=== PATIENT | male | born 1940 | race Caucasian/White ===

== ENCOUNTER → 2017-09-15 | Outpatient (CLI) | payer MEDICARE ==
[~2017-09-15] VITALS: Ht 182.9 cm; Wt 113.4 kg
[~2017-09-15] MED LIST: ACTOS 45 MG45 M1 PO; AMLODIPINE BESYL5 MG PO; APAP650 PO; ASPIR 8181 MG PO; ASPIRIN EC81 M1 PO; ASPIRIN81 M2 PO; BRILINTA90 MG PO; CARVEDILOL12.5 MG PO; CARVEDILOL25 MG PO; CENTRUM SILVER1 EAC1 PO; CENTRUM SILVER1 EAC4 PO; CIPRO500 MG PO; CLOPIDOGREL75 MG PO; COLACE100 MG PO; DIABETA 5MG TABL5 MG PO; EFFIENT10 MG PO; FLOMAX PO; FLOMAX0.4 MG PO; FLONASE16 GM NASAL; FUROSEMIDE 40 M40 M1 PO; GLUCOPHAGE1000 MG PO; GLUCOPHAGE500 MG PO; HYDROCHLOROTHIA25 M1 PO; IMDUR 30 MG TAB30 M1 PO; IMDUR 60 MG TAB60 M1 PO; KEFLEX500 M1 PO; LASIX 20 MG TAB20 MG PO; LEVAQUIN 500 M500 M2 PO; LEVEMIR SUBQ; LIPITOR40 MG PO; LIPITOR80 MG PO; LISINOPRIL20 MG PO; LISINOPRIL5 MG PO; METAMUCIL SUGA283 GM PO; METFORMIN HCL500 MG PO; NITROGLYCERIN0.4 MG SL; NITROGLYCERIN0.4 MG SUBLING; NORVASC10 MG PO; NOVOLOG FL100 UNIT/M SC; ONGLYZA5 MG PO; PLAVIX 75 MG TA75 M1; PLAVIX 75 MG TA75 M1 PO; PRAVACHOL80 MG PO; PREDNISONE 10 M10 MG PO; PROSCAR 5MG TABL5 M1 PO; QUINAPRIL 20 MG20 MG PO; SIMVASTATIN80 MG PO; TAMSULOSIN HCL0.4 MG PO; TYLENOL PM EX-1 EACH PO; TYLENOL325 MG PO
[2017-09-15 08:54] VITALS: BP 117/68
[2017-09-15 09:20] LABS: ABSOLUTE BASOPHILS 0.1 thou/uL (0.0-0.2); ABSOLUTE EOSINOPHILS 0.1 thou/uL (0.0-0.7); ABSOLUTE LYMPHOCYTES 1.2 thou/uL (0.8-5.3); ABSOLUTE MONOCYTES 0.7 thou/uL (0.0-1.2); ABSOLUTE NEUTROPHILS 4.7 thou/uL (1.6-8.1); BASOPHILS 0.9 %; EOSINOPHILS 1.7 %; HEMATOCRIT 39.1 % (42.0-52.0); HEMOGLOBIN 13.1 gm/dL (14.0-18.0); LYMPHOCYTES 17.4 %; MCH 29.9 pg (26.0-34.0); MCHC 33.4 g/dL (28.0-37.0); MCV 89.3 fL (80.0-100.0); MONOCYTES 10.8 %; MPV 7.9 fl. (7.2-11.1); NUCLEATED RBCS 0 /100WBC; PLATELET COUNT* 93 thou/uL (150-400); POLYS 69.2 %; RBC 4.37 mil/uL (4.50-6.00); RDW-CV 14.2 % (10.5-14.5); WBC 6.8 thou/uL (4.0-11.0)
[2017-09-15 09:32] LABS: APTT 28.4 Seconds (25.0-31.3); INR 1.1; PROTIME 10.8 Seconds (9.20-11.50)
[2017-09-15 09:43] LABS: CALCIUM 8.9 mg/dL (8.5-10.1); CREATININE 1.4 mg/dL (0.6-1.3); POTASSIUM 4.8 mmol/L (3.5-5.1)
[2017-09-15 09:48] LABS: ALBUMIN 3.6 g/dL (3.4-5.0); TOTAL BILIRUBIN 0.7 mg/dL (<0.1-1.0); TOTAL PROTEIN 6.6 g/dL (6.4-8.2)
[2017-09-15 11:59] VITALS: BP 122/65
--- NOTE | 2017-09-15 16:53 | EKG ---
[place] [address] ELECTROCARDIOGRAM REPORT Name: GEORGE IGLESIAS Room: [facility]#: [id number] Admission: 09/15/17 Attend Phys: Bhargav Hernandez MD Discharge: Date of : 38 Report #: [id number] THIS REPORT FOR: //name// [facility] Test Date: 2017-09-15 Test Time: 09:49:43 Pat Name: GEORGE IGLESIAS Department: Room: Gender: M Cleat Blanker: : 1940 Requested By: Bhargav Hernandez Order Number: [id number] Reading MD: Bhargav Hernandez Measurements Intervals [place] Rate: 70 P: -16 HI: 202 QRS: -75 QRSD: 180 T: 113 QT: 455 QTc: 491 Interpretive Statements A-V dual-paced rhythm with some inhibition No further analysis attempted due to paced rhythm Compared to ECG 05/06/2016 11:13:43 No significant changes Electronically Signed On 09-15-2017 16:53:16 CDT by Bhargav Hernandez [email or web address] <ELECTRONICALLY SIGNED> By: Bhargav Hernandez MD, [facility] 09/15/17 1653 0949 0949 Bhargav Hernandez MD, [facility] /EPI
--- NOTE | 2017-10-06 18:46 | CARD ---
[address] [address] CARDIAC CATH REPORT Name: GEORGE IGLESIAS Room: [facility]#: [id number] Admission: 09/15/17 Attend Phys: Bhargav Hernandez MD Discharge: Date of : 38 Report #: [id number] THIS REPORT FOR: //name// APPROVED REPORT Study performed: 09/15/2017 09:41:36 Patient Status: Out-Patient Room #: Implanted Devices: Biotronik Itrevia 7 DRT DF1, model #082887, serial #[id number] dual-chamber ICD generator The existing leads: Medtronic Sprint yelena, model #694 76 5, serial number Td [id number] pacing lead Medtronic CaptureFix Novus, model #407 65 2, serial number [id number] atrial lead Explanted Devices: Medtronic Protecta XT DR, model number D314 DRG, serial number [id number] dual-chamber ICD generator Procedure After informed consent was obtained the area of the left chest was prepped and draped in sterile fashion. Local anesthesia was achieved with 1% lidocaine. Next after an initial incision was made over the existing dual-chamber ICD pulse generator the generator was explanted using electrocautery and blunt dissection. The pocket was flushed with antibiotic solution. The leads were detached the defibrillator lead being detached first followed by the atrial lead and ultimately the RV pacing lead which was immediately attached to the new dual-chamber pacing ICD generator. The atrial and after the pocket was flushed the generator and redundant lead were placed within the device pocket. The deep tissues were closed using interrupted stitches of 2-0 Vicryl. The skin incision was then closed with a single subcuticular stitch of 4-0 Vicryl. Several Steri-Strips were placed across the incision. A sterile Telfa dressing was then covered with a Tegaderm. The patient was returned to the catheterization holding area in stable condition. Complications The patient tolerated the procedure well and there were no complications associated [place] [address] CARDIAC CATH REPORT Name: GEORGE IGLESIAS Room: [facility]#: [id number] Admission: 09/15/17 Attend Phys: Bhargav Hernandez MD Discharge: Date of : 38 Report #: [id number] The sensed P wave was 4.10 mV. There was no underlying sensed R wave. The atrial lead pacing threshold was 0.9 V at 0.40 ms. The RV pacing threshold was 1.10 V at 0.40 ms. Right atrial lead pacing impedance was 389 ohms. Shocking impedance was 63 ohms. Charge time was 9.8 seconds. VF detection rate 182 bpm with VF therapies anti-tach pacing times one and 40 J shock 8. Slow VT detection rate 150 bpm with slow VT therapy of monitoring. Fast VT detection rate 167 bpm with fast VT therapy antitachycardia pacing 6 followed by 40 J shock times a day. Conclusion 1. Dual-chamber ICD generator at elective replacement. 2. Dual-chamber ICD generator replaced. Recommendations 1. Follow-up site check in one week in the cardiology office. <ELECTRONICALLY SIGNED> By: Bhargav Hernandez MD, FACC 10/06/171845 45 45Miclennox Hernandez MD, FACC /INF
== END | disposition home or self-care (01) ==
LOC: M.CL 08:41
PROVIDERS: Internal Medicine Cardiovascular Disease
DX: Z45.02 Encounter for adjustment and management of automatic implantable cardiac defibrillator (principal); I10 Essential (primary) hypertension; E11.9 Type 2 diabetes mellitus without complications; E78.5 Hyperlipidemia, unspecified; I25.2 Old myocardial infarction; M19.90 Unspecified osteoarthritis, unspecified site; I42.9 Cardiomyopathy, unspecified; Z85.828 Personal history of other malignant neoplasm of skin; Z87.442 Personal history of urinary calculi; Z95.5 Presence of coronary angioplasty implant and graft; Z98.0 Intestinal bypass and anastomosis status; Z79.899 Other long term (current) drug therapy; Z96.651 Presence of right artificial knee joint; Z87.891 Personal history of nicotine dependence; Z88.2 Allergy status to sulfonamides; Z88.8 Allergy status to other drugs, medicaments and biological substances; Z79.82 Long term (current) use of aspirin; Z79.4 Long term (current) use of insulin; Z79.01 Long term (current) use of anticoagulants

== ENCOUNTER 2017-10-09 15:17 | Inpatient (IN) | payer MEDICARE ==
[~2017-10-09] VITALS: Ht 182.9 cm; Wt 108.0 kg
[~2017-10-09 15:17] MED LIST changes: -COLACE100 MG PO; -EFFIENT10 MG PO; -METAMUCIL SUGA283 GM PO
[2017-10-09 15:23] VITALS: BP 181/99
[2017-10-09] MEDS ORDERED: PLAVIX 75 MG TA75 M1 PO ×2 (15:36→15:37)
[2017-10-09] MEDS ORDERED: IMDUR 30 MG TAB30 M1 PO (15:40)
[2017-10-09 15:48] LABS: ABSOLUTE BASOPHILS 0.1 thou/uL (0.0-0.2); ABSOLUTE EOSINOPHILS 0.2 thou/uL (0.0-0.7); ABSOLUTE LYMPHOCYTES 1.1 thou/uL (0.8-5.3); ABSOLUTE MONOCYTES 0.8 thou/uL (0.0-1.2); ABSOLUTE NEUTROPHILS 6.8 thou/uL (1.6-8.1); BASOPHILS 0.9 %; EOSINOPHILS 1.9 %; HEMOGLOBIN 13.4 gm/dL (14.0-18.0); MCH 30.2 pg (26.0-34.0); MCHC 33.4 g/dL (28.0-37.0); MCV 90.4 fL (80.0-100.0); MONOCYTES 8.9 %; MPV 8.7 fl. (7.2-11.1); NUCLEATED RBCS 0 /100WBC; PLATELET COUNT* 90 thou/uL (150-400); POLYS 76.3 %; RBC 4.42 mil/uL (4.50-6.00); WBC 8.9 thou/uL (4.0-11.0)
[2017-10-09 15:53] LABS: CREATININE 1.6 mg/dL (0.6-1.3); POTASSIUM 4.1 mmol/L (3.5-5.1)
[2017-10-09 16:04] LABS: ALBUMIN 3.9 g/dL (3.4-5.0); TOTAL PROTEIN 7.4 g/dL (6.4-8.2); TROPONIN-I LEVEL 0.08 ng/mL (<0.06)
[2017-10-09 16:08] LABS: APTT 30.6 Seconds (25.0-31.3); INR 1.1; PROTIME 10.8 Seconds (9.20-11.50)
--- NOTE | 2017-10-09 19:10 | NUR ---
RN UNABLE TO TAKE REPORT AT THIS TIME. PT RETURNED FROM [facility], UPDATED ON PLAN FOR CARE
[2017-10-09 19:41] VITALS: BP 183/91
[2017-10-09 20:43] LABS: BE -3.4 mmol/L (-2 to +3); HCO3 21.2 mmol/L (22.0-26.0); PCO2 36.9 mmHg (35.0-45.0); PO2 65.3 mmHg (75.0-100.0); pH 7.377 (7.340-7.450)
[2017-10-09 20:54] VITALS: BP 179/157
[2017-10-09 23:00] VITALS: BP 151/67
--- NOTE | 2017-10-09 23:01 | NUR ---
PATIENT CAME TO FLOOR WITH ELEVATED BLOOD PRESSURE, SHORTNESS OF BREATH, RESTLESSNESS. DOCTOR RODRÍGUEZ CALLED AND NOTIFIED. ORDER TO GIVE ATIVAN,NITRO AND DRAW ABG. PATIENT WAS NOT COMPLAINING OF CHEST PAIN. DOCTOR RODRÍGUEZ ADDRESS BLOOD PRESSURE MEDS. RESIPRATORY NOTIFIED FO PATINETS SOB. CARDIOLOGY CALLED AND NOTIFIED OF ELEVATED TROP, AND INCREASE HEART RATE, NO NEW ORDERS. CALLED TO DOCTOR RODRÍGUEZ REQUARDING REQUEST FOR BIPAP DUE TO INCREASE OXYGEN NEED, SEE ORDERS. DOCTOR RODRÍGUEZ ALSO NOTIFIED OF INCREASED HEART RATE. PATIENT HEART RATE WAS 120'S WHEN CAME TO FLOOR, HEART RATE DECRASED TO 105 BY TRANSFER. RESPIRATORY RATE WAS HIGH 30'S WHEN CAME TO FLOOR AND DECREASE TO 26 BY TRANSFER. PATIENT O2 WAS AT 97 BY TRANSFER. PATIENT NO LONGER APPEAR TO BE IN DISTRESS AT TRANSFER. REPORT GIVEN TO AMY, PATIENT TRANSFER TO ICU. EKG WAS DONE BEFORE PATIENT DISCHARGE, HEPRAIN DRIP STARTED.
[2017-10-10] VITALS (19 sets, daily range): BP systolic 103–127; BP diastolic 53–86
--- NOTE | 2017-10-10 09:16 | NUR ---
RECIEVED REPORT FROM NIGHT RN. ASSESSMENT CHARTED. AFEBRILE. DENIES CHEST PAIN. OFF BIPAP. CARDIZEM AND HEPARIN GTT INFUSING. TROP ELEVATED. NOTIFIED CARDIOLOGY NURSE, CHELSEY. WILL CONTINUE TO MONITOR.
--- NOTE | 2017-10-10 12:40 | EKG ---
[place] [address] ELECTROCARDIOGRAM REPORT Name: GEORGE IGLESIAS Room: [address] ADM IN .R.#: [id number] Admission: 10/09/17 Attend Phys: Do Rowley MD Discharge: Date of : 38 Report #: [id number] THIS REPORT FOR: //name// [facility] ED Test Date: 2017-10-09 Test Time: 15:26:07 Pat Name: GEORGE IGLESIAS Department: Room: [address] Gender: M Welcome Center Attendant: HUSEYIN : 1940 Requested By: Raegan Will Order Number: [id number] Reading MD: Soren Robert Measurements Intervals [place] Rate: 93 P: 114 KS: 46 QRS: -77 QRSD: 182 T: 107 QT: 424 QTc: 528 Interpretive Statements Ventricular-paced complexes No further rhythm analysis attempted due to paced rhythm LVH with IVCD, LAD and secondary repol abnrm Inferior infarct, acute (RCA) Anterolateral infarct, recent Prolonged QT interval Probable RV involvement, suggest recording right precordial leads Compared to ECG 09/15/2017 09:49:43 Intraventricular conduction delay now present Left ventricular hypertrophy now present Early repolarization now present Myocardial infarct finding now present Prolonged QT interval now present Electronically Signed On 7-21-2018 12:40:40 CDT by Soren Robert [email or web address] <ELECTRONICALLY SIGNED> By: Soren Robert MD, [facility] 10/10/17 1240 1526 1526 Soren Robert MD, [facility] /EPI
--- NOTE | 2017-10-10 12:41 | EKG ---
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 Packer: : 1940 Requested By: Raegan Will Order Number: [id number] MD: Soren Robert Measurements Intervals [place] Rate: 115 P: 47 FL: 56 QRS: -72 QRSD: 187 T: 114 QT: 387 QTc: 536 Interpretive Statements Ventricular-paced complexes No further analysis attempted due to paced rhythm Compared to ECG 09/15/2017 09:49:43 No significant changes Electronically Signed On 10-10-2017 12:41:11 CDT by Soren Robert [email or web address] <ELECTRONICALLY SIGNED> By: Soren Robert MD, [facility] 10/10/17 1241 2203 02 Soren Robert MD, [facility] /EPI
--- NOTE | 2017-10-10 12:43 | EKG ---
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: : 1940 Requested By: Do Rowley Order Number: [id number] Reading MD: Soren Robert Measurements Intervals [place] Rate: 80 P: 0 CA: 163 QRS: -78 QRSD: 198 T: 108 QT: 472 QTc: 545 Interpretive Statements Atrial-sensed ventricular-paced rhythm No further analysis attempted due to paced rhythm Compared to ECG 09/15/2017 09:49:43 No significant changes Electronically Signed On 10-10-2017 12:42:51 CDT by Soren Robert [email or web address] <ELECTRONICALLY SIGNED> By: Soren Robert MD, FACC 10/10/17 1242 0850 0850 Soren Robert MD, [facility] /EPI
--- NOTE | 2017-10-10 13:44 | NUR ---
PT HAD HIGH PTT >198.4. RESULTS REPORTED TO CARDIOLOGY NURSE AND DR MENDEZ. TURNED OFF HEPARIN GTT FOR 1 HR AND FOLLOWED CARDIOLOGY HEPARIN THERAPY PROTOCOL.
--- NOTE | 2017-10-10 18:41 | NUR ---
PT VITALS STABLE. ADEQUATE URINE OUTPUT. HEPARIN GTT STILL INFUSING PER PROTOCOL. CARDIZEM GTT D/C'D. DR ANGEL ORDERED PT BE NPO AFTER MIDNIGHT TOMORROW. WILL PROBABLY HAVE CATH PROCEDURE THAT NEXT DAY. PT DENIES ANY CHEAT PAIN. PT AND FAMILY UPDATED ON PLAN OF CARE.
--- NOTE | 2017-10-10 20:00 | NUR ---
ASSUMED CARE OF PATIENT. DENIES CHEST PAIN. GOAL IS TO REST TONIGHT.
[2017-10-10] MEDS ORDERED: METAMUCIL SUGA283 GM PO (20:06)
[2017-10-10] MEDS ORDERED: TYLENOL PM EX-1 EACH PO (20:08)
--- NOTE | 2017-10-10 23:00 | NUR ---
TRANSFERRED PATIENT UP TO 226 BY BED WITH BELONGINGS. OK TO TRANSFER FROM DR CASTILLO AND DR ANGEL. PATIENT WILL TEXT ABOUT TRANSFER. REPORT GIVEN TO IVA.
--- NOTE | 2017-10-11 03:52 | NUR ---
PT TRANSFERED UP TO ROOM 226 AT AROUND 1130PM FROM ICU. GOT REPORT FROM NURSE, COMPLETED ASSESSMENT, TOOK VITALS, AND GAVE NIGHT MEDICATION. NO C/O PAIN OR DISCOMFORT. PT ON BEDREST UNTIL FURTHER NOTICE, WILL CONTINUE TO MONITOR.
[2017-10-11 04:00] VITALS: BP 106/64
[2017-10-11 08:00] VITALS: BP 138/78
--- NOTE | 2017-10-11 08:09 | CON ---
[address] [address] CONSULTATION Name: GEORGE IGLESIAS Room: [address] IN M.R.#: [id number] Admission: 10/09/17 Attend Phys: Do Rowley MD Discharge: Date of : 38 Report #: [id number] THIS REPORT FOR: //name// CC: Do Hernandez REQUESTING PHYSICIAN: Dr. Rowley. REASON FOR CONSULTATION: Respiratory failure. DISCUSSION: The patient is a pleasant 77-year-old man who has no history of underlying lung disease. He was admitted after presenting to the Emergency Department with complaints of chest tightness and increasing shortness of breath. No real chest pain. He took nitroglycerin at home, did have some relief. When he had ongoing issues, he was seen in [facility] Emergency Room and was admitted. Initial troponins were unremarkable. X-ray was clear of infiltrates. He was placed up on the floor. He had increasing shortness of breath and anxiety. He was tachycardic and hypertensive. Subsequently, transferred to the Intensive Care Unit. With increasing respiratory rate, he was placed on BiPAP. He was also placed on a diltiazem drip per Cardiology. At the time I saw him this morning, heart rate, blood pressure were well controlled and quite stable. FiO2 was 60% on the BiPAP, with his O2 saturations running in the high 90s. He was awake, comfortable and was requesting to have the BiPAP removed. He is a remote smoker, quitting over 25 years ago. No history of COPD, asthma, emphysema. He is on no inhalers, breathing treatments or oxygen at home. His history is remarkable for coronary artery disease and ischemic cardiomyopathy. He follows with Dr. Johnson and has done so for years. He had coronary artery bypass grafting surgery 20 years ago. He has had multiple stents placed in the interim. He has also developed an ischemic cardiomyopathy with the last EF that I have access to at 30-35%. He has a defibrillator in place as well. On followup lab this morning, he has had a significant bump in his troponin. He was given some Lasix last night with just a fair urine output. He was not short of breath, and he was pain free this morning. PAST MEDICAL HISTORY: Remarkable primarily for the coronary artery disease as noted above. He also has a history of peripheral vascular disease, has had a stent placed, abdominal aortic aneurysm. He sees Dr. Donahue for that. Also has a history of renal cell carcinoma, status post nephrectomy. I do not believe he has had any evidence of recurrence. History of hypertension, dyslipidemia, knee replacement, herniorrhaphy, dyslipidemia. BPH, treated with laser and I believe a TURP. HOME MEDICATIONS: Reportedly were p.r.n. nitroglycerin, Plavix, Imdur, baby aspirin, Coreg, insulin, atorvastatin, Flomax, Lasix, Proscar, lisinopril, [place] [address] CONSULTATION Name: GEORGE IGLESIAS Room: [address] IN [facility]#: [id number] Admission: 10/09/17 Attend Phys: Do Rowley MD Discharge: Date of : 38 Report #: [id number] SOCIAL HISTORY: Former smoker as noted. Quit greater than 25 years ago. He is . REVIEW OF SYSTEMS: Please note positives as above. He has not had any GI symptoms. No nausea, vomiting, diarrhea. No blood in the stools. Retrospectively, he has had trouble playing golf here over the last month or so. He notes he could only play 4-5 holes due to shortness of breath. It started to tighten up in his chest. He has some upper airway congestion. No cough or sputum production from his lungs. No hemoptysis. He has not noted any swelling in his lower extremities. He has not had any syncopal episodes. No skin rashes. FAMILY HISTORY: Positive for strokes. PHYSICAL EXAMINATION: GENERAL: The patient is seen in the Intensive Care Unit. He is on the BiPAP. He is alert, conversant, and able to speak in full sentences. VITAL SIGNS: Heart rates in the 80s. O2 saturations are in the high 90s. HEENT: Head is normocephalic. Sclerae nonicteric. Mucous membranes do look dry. NECK: Negative for adenopathy. Neck veins do not look distended. He has a well-healed median sternotomy scar. His pacemaker/defibrillator palpable left anterior chest wall. HEART: Tones are distant, appear regular. Grade 1/6 systolic murmur. No S3 is heard. LUNGS: Sounds are clear. No wheezing or crackles are heard. Excursion is equal. ABDOMEN: Mildly obese, but soft, without appreciable hepatosplenomegaly. There is no guarding or rebound tenderness. LOWER EXTREMITIES: Negative for edema. No calf tenderness. Healed surgical scar over his right knee. Pulses are present, but diminished in his feet. SKIN: Warm and dry. NEUROLOGIC: He is alert and oriented x 3. LABORATORY AND X-RAY FINDINGS: Echocardiogram done last year here at [facility] showed EF of 30-35% with akinesis noted. RV was mildly dilated, but had normal systolic function. Left atrium was moderately to severely dilated. He had qdqr-vt-bpysgcat mitral regurgitation. Estimated pulmonary artery systolic pressure was 35 mmHg. Arterial blood gases done yesterday evening revealed a pH of 7.38, pCO2 of 37, pO2 of 65, bicarbonate 21 on 8 liters of oxygen. There were no gases done once he was on the BiPAP. White blood cell count 8900, hemoglobin 13.4, hematocrit of 40, platelets are 90,000. His chemistry, yesterday, his BUN was 24, creatinine of 1.6. Initial troponin was 0.08, did bump up to 7.79 this morning. ProBNP yesterday was 4810. Chest x-ray was reviewed. He has evidence of prior median sternotomy. Does have some prominence of interstitial markings, probably [place] [address] CONSULTATION Name: GEORGE IGLESIAS Room: [address] IN [facility]#: [id number] Admission: 10/09/17 Attend Phys: Do Rowley MD Discharge: Date of : 38 Report #: [id number] which are stable compared to older studies. No acute infiltrates are noted. No pneumothorax, no pleural effusions. He had a ventilation perfusion lung scan done yesterday. Some mild air trapping noted. Low probability for PE. IMPRESSION: 1. Acute respiratory failure, improved this morning. Appears to have been related to a non-ST elevation myocardial infarction. Has known coronary artery disease with an ischemic cardiomyopathy. We did not have florid heart failure on his chest x-ray, and he already has underlying issues with LV dysfunction and his mitral regurgitation, probably contribute to his increased O2 needs. Better this morning with heart rate and blood pressure better controlled. 2. Chronic kidney disease. 3. Chronic thrombocytopenia. 4. Peripheral vascular disease. 5. Mild metabolic acidosis noted on last night's blood gas. Follow up lab pending from this morning. 6. Clinically, I doubt he has a significant chronic obstructive pulmonary disease. RECOMMENDATIONS: 1. We will discontinue his IV steroids. 2. We will continue bronchodilator therapy at this time and see how he does over the next 24 hours. 3. I believe he could also safely transition from BiPAP over to nasal cannula. He can return to BiPAP p.r.n. increased work of breathing. 4. Need cardiology followup. I am not sure what other options there may be for him in regards to his coronary artery disease, <ELECTRONICALLY SIGNED> By: Kristina Dunham MD 10/11/17 0809 0842 0958Kristina Dunham MD /nt
--- NOTE | 2017-10-11 10:51 | NUR ---
RECEIVED REPORT FROM IVA PAYNE. ASSUMED CARE OF PT AROUND 0730. PT A&OX4. VSS. O2 SAT 97% ON 3L PER NC, TURNED DOWN TO 2L. EMPLOYMENT OFFICE CLERK IN PLACE TRACING VPACED. AM ASSESSMENT AND VITALS COMPLETED CHARTED. IV'S TO LEFT AC AND LEFT WRIST INTACT. HEPARIN DRIP INFUSING PER PROTOCOL. PINEDA IN PLACE TO DD, URINE YELLOW; PINEDA TO BE PULLED OUT TODAY. PT EATING AND DRINKING WITHOUT ISSUE. DENIES PAIN OR SOA SO FAR THIS SHIFT. PT ABLE TO GET OUT OF BED AND ASSISTED TO BATHROOM THIS AM FOR A BM. PT TO BE NPO AFTER MIDNIGHT FOR CARDIAC CATH TOMORROW. PT AWARE OF PLAN OF CARE AND COMMMUNICATES UNDERSTANDING. PT CURRENTLY WATCHING TV IN BED. CALL LIGHT IS WITHIN REACH, LOW FALL RISK PRECAUTIONS IN PLACE. HOURLY ROUNDING PERFORMED. WCTM.
[2017-10-11 12:00] VITALS: BP 124/69
[2017-10-11 15:43] VITALS: BP 103/63
--- NOTE | 2017-10-11 18:10 | NUR ---
PT REMAINS A&O X4. VSS. PT ABLE TO BE TITRATED OFF OXYGEN THIS SHIFT. >94% ON ROOM AIR. SENIOR INTERIOR DESIGNER REMAINS IN PLACE WITH NO CHANGES THIS SHIFT. APTT CAME BACK AT 57.1 - NO CHANGES NEEDED TO HEPARIN DRIP. PT STEADY ON FEET - ABLE TO BE UP AD YUE IN ROOM. MIRIAM TAMAYO'Jordy - PT VOIDING PER TOILET IN BATHROOM, NO ISSUES. BM THIS AM. PT EATING AND DRINKING WITHOUT ISSUE. PT TO BE NPO AFTER MIDNIGHT FOR CARDIAC CATH TOMORROW. PT HAD VISITORS THIS AFTERNOON. PT HAS DENIED PAIN OR DISCOMFORT THIS SHIFT. PT CURRENTLY RESTING IN BED WATCHING TV. LOW FALL RISK PRECAUTIONS IN PLACE. CALL LIGHT IS WITHIN REACH, HOURLY ROUNDING PERFORMED. WCTM FOR DURATION OF SHIFT.
[2017-10-11 20:00] VITALS: BP 112/66
[2017-10-12] VITALS: BP 125/73
--- NOTE | 2017-10-12 03:56 | NUR ---
ASSUMED PT CARE AT 1930. ASSESSMENT COMPLETED CHARTED. ABLE TO MAKE NEEDS KNOWN, RESTING IN BED ALL NIGHT, NPO AT MIDNIGHT FOR CATH TODAY. HEPARIN DRIP RUNNING AT 9ML/HR, REMAINS THERAPEUTIC, RECHECKING PTT IN AM. NO C/O PAIN OR DISCOMFORT. WILL CONTINUE TO MONITOR.
[2017-10-12 04:00] VITALS: BP 122/74
[2017-10-12 05:14] LABS: ABSOLUTE EOSINOPHILS 0.1 thou/uL (0.0-0.7); ABSOLUTE LYMPHOCYTES 1.4 thou/uL (0.8-5.3); ABSOLUTE MONOCYTES 0.8 thou/uL (0.0-1.2); ABSOLUTE NEUTROPHILS 6.4 thou/uL (1.6-8.1); BASOPHILS 0.5 %; EOSINOPHILS 0.8 %; HEMATOCRIT 33.9 % (42.0-52.0); HEMOGLOBIN 11.5 gm/dL (14.0-18.0); MCH 30.1 pg (26.0-34.0); MCHC 33.8 g/dL (28.0-37.0); MONOCYTES 9.3 %; MPV 8.7 fl. (7.2-11.1); NUCLEATED RBCS 0 /100WBC; PLATELET COUNT* 84 thou/uL (150-400); POLYS 73.4 %; RBC 3.81 mil/uL (4.50-6.00); RDW-CV 13.8 % (10.5-14.5); WBC 8.7 thou/uL (4.0-11.0)
[2017-10-12 10:04] LABS: ANION GAP 10 mmol/L (7-16); BUN 51 mg/dL (7-18); CALCIUM 8.4 mg/dL (8.5-10.1); CHLORIDE 105 mmol/L (98-107); CO2 25 mmol/L (21-32); CREATININE 1.7 mg/dL (0.6-1.3); GLUCOSE 121 mg/dL (70-99); SODIUM 140 mmol/L (136-145)
[2017-10-12 10:06] LABS: SERUM ASSESSMENT Clear
[2017-10-12 10:09] LABS: CHOLESTEROL 108 mg/dL (<200); HDL CHOLESTEROL 39 mg/dL (>40); LDL CHOLESTEROL 57 mg/dL (<100); TC:HDL 2.8 Ratio (Not establshd); TRIGLYCERIDE 63 mg/dL (<150); VLDL 13 mg/dL (<40)
--- NOTE | 2017-10-12 12:36 | NUR ---
MET WITH PT AND TO DISCUSS HOME SITUATION/DC PLANNING. PT LIVES WITH . HE IS NORMALLY INDEPENDENT AND ACTIVE. USES WALKER WITH SEAT IF HE'S GOING OUT AND NEEDS IT. HE JUST WENT ON A VACATION TO [place], DROVE THERE AND TOLERATED WELL. PT STATES HE PLAYS GOLF OFTEN ALSO. DENIES DC NEEDS. WILL FOLLOW
[2017-10-12 12:45] VITALS: BP 144/82
[2017-10-12 15:30] VITALS: BP 141/74
--- NOTE | 2017-10-12 19:05 | NUR ---
JESSICA RESTING IN BED. VITAL SIGNS STABLE. HEPARIN GTT INFUSING PER ORDERS, THERAPEUTIC PTT. HEART CATH TOMORROW PER DR LOERA. HOURLY ROUNDING COMPLETED FOR PATIENT SAFETY.
[2017-10-12 20:00] VITALS: BP 115/61
[2017-10-13] VITALS: BP 119/56
--- NOTE | 2017-10-13 02:48 | NUR ---
ASSUMED PT CARE AT 1930. ASSESSMENT COMPLETED CHARTED. NO C/O PAIN, UP AD YUE, HEPARIN DRIP RUNNING AT 900 U AND CONTINUES TO BE THERAPEUTIC. NPO AT MIDNIGHT FOR STENT TODAY. ABLE TO MAKE NEEDS KNOWN, RESTING IN BED COMFORTABLY AT THIS TIME. WILL CONTINUE TO MONITOR.
[2017-10-13 04:00] VITALS: BP 116/74
--- NOTE | 2017-10-13 18:40 | NUR ---
PATIENT RESTING IN BED. POST CATH TODAY WITH 2 STENT PLACEMENTS. VITAL SIGNS STABLE. PATINET OFF BEDREST. UP STEADY WITH NO ASSISTANCE NEEDED. HOURLY ROUNDING COMPLETED FOR PATIENT SAFETY.
[2017-10-13 20:00] VITALS: BP 124/58
[2017-10-13 23:30] VITALS: BP 111/54
--- NOTE | 2017-10-14 03:21 | NUR ---
PATIENT UP TO THE BATHROOM WITH SBA. CONT. IVF WITHOUT DIFFICULTIES. DENIES PAIN OR DISCOMFORT. NO SOA. BED IN LOW POSITION, CALL LIGHT IN REACH. BED ALARM ON. WILL CONT. WITH PLAN OF CARE AT THIS TIME.
[2017-10-14 04:00] VITALS: BP 113/55
[2017-10-14 05:11] LABS: HEMATOCRIT 32.5 % (42.0-52.0); MCH 30.2 pg (26.0-34.0); MCHC 33.9 g/dL (28.0-37.0); MCV 89.2 fL (80.0-100.0); RBC 3.65 mil/uL (4.50-6.00); RDW-CV 13.8 % (10.5-14.5); WBC 6.2 thou/uL (4.0-11.0)
[2017-10-14 05:59] LABS: ALBUMIN 2.9 g/dL (3.4-5.0); CALCIUM 7.9 mg/dL (8.5-10.1); CREATININE 1.4 mg/dL (0.6-1.3); POTASSIUM 3.7 mmol/L (3.5-5.1); TOTAL BILIRUBIN 0.7 mg/dL (<0.1-1.0); TOTAL PROTEIN 5.3 g/dL (6.4-8.2)
[2017-10-14 06:07] LABS: TROPONIN-I LEVEL 0.89 ng/mL (<0.06)
[2017-10-14 11:38] VITALS: BP 113/55
[2017-10-14 12:00] VITALS: BP 122/67
[2017-10-14] MEDS ORDERED: COLACE100 MG PO (13:30)
[2017-10-14] MEDS ORDERED: EFFIENT10 MG PO (13:33)
--- NOTE | 2017-10-14 13:36 | EKG ---
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: : 1940 Requested By: Corby Salgado Order Number: [id number] Ritika MD: Bhargav Hernandez Measurements Intervals [place] Rate: 80 P: ND: QRS: -78 QRSD: 201 T: 106 QT: 463 QTc: 535 Interpretive Statements Afib/flutter and ventricular-paced rhythm No further analysis attempted due to paced rhythm Compared to ECG 10/10/2017 08:50:23 Atrial-sensed ventricular-paced complex(es) or rhythm no longer present Electronically Signed On 10-14-2017 13:35:58 CDT by Bhargav Hernandez [email or web address] <ELECTRONICALLY SIGNED> By: Bhargav Hernandez MD, FACC 10/14/17 1335 1248 1248 Bhargav Hernandez MD, [facility] /EPI
--- NOTE | 2017-10-14 13:41 | EKG ---
[place] [address] ELECTROCARDIOGRAM REPORT Name: GEORGE IGLESIAS Room: [address] ADM IN .R.#: [id number] Admission: 10/09/17 Attend Phys: Do Rowley MD Discharge: Date of : 38 Report #: [id number] THIS REPORT FOR: //name// [facility] Test Date: 2017-10-14 Test Time: 08:51:47 Pat Name: GEORGE IGLESIAS Department: Room: [address] Gender: M Major General: : 1940 Requested By: Corby Salgado Order Number: [id number] Ritika MD: Bhargav Hernandez Measurements Intervals [place] Rate: 80 P: [place]: QRS: -75 QRSD: 202 T: 110 QT: 472 QTc: 545 Interpretive Statements Afib/flutter and ventricular-paced rhythm No further analysis attempted due to paced rhythm Baseline wander in lead(s) V1 Compared to ECG 10/10/2017 08:50:23 Atrial-sensed ventricular-paced complex(es) or rhythm no longer present Electronically Signed On 10-14-2017 13:41:28 CDT by Bhargav Hernandez [email or web address] <ELECTRONICALLY SIGNED> By: Bhargav Hernandez MD, FACC 10/14/17 1341 0851 0851 Bhargav Hernandez MD, FACC /EPI
--- NOTE | 2017-10-14 17:49 | NUR ---
ORDER RECEIVED TO DISCHARGE JESSICA HOME TO SELF CARE. MED REC, MEDICATIN EDUCAITON , STROKE EDUCATION, AND NEED FOR FOLLOW UP APPOINTMENTS COVERD STATED UNDERSTOOD BY PATIENT. JESSICA ALSO EDUCATED ON WEIGHT AND ACTIVITY RESTRICTIONS UNTIL RELEASED BY CARDIOLOGY. IV AND TELEMTRY PACK REMOVED. PATIENT ESCORTED VIA WHEELCHAIR BY STAFF TO AWAITNG CAR WITH SPOUSE PRESSENT. HOURLY ROUNDING COMPLETD FOR PATIENT SAFETY AND PATIENT WAS IN NOAPPARNET DESTRESS AT TIME OF DISCHARGE. DC TIME OF 14:10.
--- NOTE | 2017-10-17 11:16 | CARD ---
[address] [address] CARDIAC CATH REPORT Name: GEORGE IGLESIAS Room: [address] IN [facility]#: [id number] Admission: 10/09/17 Attend Phys: Do Rowley MD Discharge: 10/14/17 Date of : 36 Report #: [id number] THIS REPORT FOR: //name// APPROVED REPORT Study performed: 10/13/2017 09:10:34 Patient Details Patient Status: In-Patient Room #: 226 The patient is a 77 year-old male Event Personnel Corby Salgado Academic Computing Director, Meche Little RN RN, Meche Little RN RN, George Rowell Scrub Procedures Performed Art Access - R femoral artery* Left Heart Cath Coronaries, Bypass Grafts Hemostasis w/ Angioseal MIRA w/Atherectomy Single DIAG MIRA Revasc Graft Single RCA Indication Non-STEMI Risk Factors Hypercholesterolemia, Hypertension Previous Procedures/Diagnoses Previous CABGPrevious PCI Admission/Lab Medications/Medications given during procedure Aspirin, Platelet Aff. Inhib., Angiomax bolus and infusion Procedure Narrative The patient was brought electively to the Cardiac Catheterization Laboratory and was prepped and draped in a sterile manner. The right femoral was infiltrated with 2% Lidocaine subcutaneous anesthesia. A [place] 6 FR sheath was inserted into the right femoral artery. Coronary angiography was performed using coronary diagnostic catheters. The right coronary system was accessed and visualized with a AR1 Mod 6fr catheter. The left ventricle was accessed and visualized with a 6Fr Straight PIG catheter. Left ventricular/Aortic Valve gradient assessed via catheter pullback. The patient tolerated the procedure well and there were no complications associated with the procedure. There was no hematoma. Vein grafts were defined with multiple injections via a 6 Setsw[place] AR-1 [place] [address] CARDIAC CATH REPORT Name: GEORGE IGLESIAS Room: [address]#: [id number] Admission: 10/09/17 Attend Phys: Do Rowley MD Discharge: 10/14/17 Date of : 36 Report #: [id number] catheter Intraoperative Conscious Sedation Sedation start time: 9:39 Case end Time: 11:18 Fentanyl 100.0 mcg Versed 4 mg Fluoro Time: 38 minutes Dose: DAP [id number] cGycm2 4368 mGy Contrast Type and Amount: Visipaque 430 ml Coronary Angiography The patient's coronary anatomy is right dominant. [place] Artery Percent Stenosis #1 patent saphenous vein graft to 2 diagonal branches with 90% ostial and 80% proximal graft stenosis #2 patent saphenous vein graft to the distal right coronary artery with 80% distal graft narrowing #3 recently defined widely patent WALL graft to the LAD Diagnostic Cath Left Main 0% narrowing by recent cath LAD 100% proximal occlusion Circumflex 100% mid vessel occlusion Right Coronary 70% proximal stenosis with tandem 75% mid vessel stenosis and 90% distal right coronary stenosis Hemodynamics The aortic pressure is 118/70 mmHg with a mean of 89 mmHg. The left ventricular pressure is 111/16 mmHg with a mean of mmHg. The left ventricular end diastolic pressure is 20 mmHg. There was no gradient across the aortic valve upon pullback. PCI Technique Lesion Anticoagulation was achieved with Angiomax. Patient was preloaded with Angiomax IV 17 ml. Percutaneous coronary intervention was performed on the Distal 1/3 SVG Graft to RCA. The lesion stenosis prior to intervention was 80% with PAULINA 3 flow. A 6Fr AR 1 Guide Catheter was used to engage the SVG graft ostium. A ProwaterFlex 180CM Interventional Guidewire was used to cross the lesion. BALLOON DILATION A Balloon catheter NC Trek RX 2.5 X 12 [place] [address] CARDIAC CATH REPORT Name: GEORGE IGLESIAS Room: [address]#: [id number] Admission: 10/09/17 Attend Phys: Do Rowley MD Discharge: 10/14/17 Date of : 36 Report #: [id number] to 10.00atm for 12seconds. Additional Inflation: 12.00atm for 9seconds. Additional Inflation: 14.00atm for 11seconds. STENT DEPLOYMENT A stent Xience Alpine RX 2.5X23 was inserted and inflated up to 10.00atm for 12seconds. Additional Inflation: 14.00atm for 11seconds. Additional Inflation: 16.00atm for 9seconds. Final angiography reveals 0 % stenosis with PAULINA 3 flow. PCI Technique Lesion 2 Percutaneous Coronary Intervention was performed on the Ostium and Proximal portions of the SVG Graft to Diagonal Branches. Patient was preloaded with Angiomax Drip IV 39.5 ml per hrAngiomax IV 17 ml. The lesion stenosis prior to intervention was 90% with PAULINA 3 flow. A 6FR AR 1 SH Guide Catheter was used to engage the SVG Graft ostium. A ProwaterFlex 180CM Interventional Guidewire was used to cross the lesion. Balloon Dilation A Balloon catheter NC Trek RX 3.0 X 15 was inserted and inflated up to 16.00atm for 12seconds. Additional Inflation: 18.00atm for 13seconds. Additional Inflation: 20.00atm for 16seconds. A 2.5 by 10 angiosculpt scoring balloon was utilized to perform atherotomy/atherectomy on the proximal portion of the vein graft to the diagonals; it was inflated to 12 alethea for 15 seconds Stent Deployment A drug-eluting stent Xience Alpine RX 3.0X33 was inserted and inflated up to 14atm for 15seconds. Post Stent Deployment Balloon Dilation A Balloon catheter NC Trek RX 3.0 X 12 was inserted and inflated up to 18atm for 15seconds. Final angiography reveals 10 % stenosis with PAULINA 3 flow. BALLOON DILATION A Balloon catheter AngioSculpt PTCA 2.5 X 10mm was inserted and inflated up to 16.00atm for 9seconds. Additional Inflation: 16.00atm for 10seconds. STENT DEPLOYMENT A drug-eluting stent Xience Alpine RX 3.0X33 was inserted and inflated up to 16.00atm for 10seconds. Additional Inflation: 16.00atm for 9seconds. [address] [address] CARDIAC CATH REPORT Name: GEORGE IGLESIAS Room: [address] IN [facility]#: [id number] Admission: 10/09/17 Attend Phys: Do Rowley MD Discharge: 10/14/17 Date of : 36 Report #: [id number] POST STENT DEPLOYMENT BALLOON DILATION A Balloon catheter NC Trek RX 3.0 X 15 was inserted and inflated up to 16.00atm for 10seconds. Conclusion #1 significant coronary artery disease characterized by the following: A total occlusion of the proximal LAD B total occlusion of mid circumflex C dominant right coronary artery with 70% proximal, tandem 75% mid, and 90% distal right coronary stenosis #2 graft study characterized by the following A patent saphenous vein graft to diagonals with 90% ostial and 80% proximal stenosis B patent saphenous vein graft to the distal right coronary artery with 80% distal graft stenosis C recently defined widely patent WALL graft to the LAD #4 moderate elevation of left ventricular end-diastolic pressure at rest 5 successful atherectomy with stenting of the proximal portion of the vein graft to the diagonal with 10% residual narrowing and PAULINA-3 flow the distal vessel #6 successful percutaneous coronary intervention with deployment of drug-eluting stent at the site of 80% distal stenosis in the saphenous vein graft to the right coronary artery with 0% residual narrowing and PAULINA-3 flow the distal vessel Recommendations Cardiac Risk Reduction Program Aggressive Medical Therapy Medications Administered Aspirin (any) Prasugrel [address] [address] CARDIAC CATH REPORT Name: KELSIEGEORGE Room: [address] IN M.R.#: [id number] Admission: 10/09/17 Attend Phys: Do Rowley MD Discharge: 10/14/17 Date of : 38 Report #: [id number] Diagnostic Cath Approved by: Corby Salgado MD Date/Time: 10/17/17 at 1115 hrs. <ELECTRONICALLY SIGNED> By: Coryb Salgado MD, FACC 10/17/17 1115 1115 [id number] Salgado MD, FACC /INF
--- NOTE | 2017-10-29 10:49 | CON ---
[address] [address] CONSULTATION Name: GEORGE IGLESIAS Room: [address] IN .R.#: [id number] Admission: 10/09/17 Attend Phys: Do Rowley MD Discharge: 10/14/17 Date of : 38 Report #: [id number] THIS REPORT FOR: //name// CC: Do Hernandez DATE OF SERVICE: 10/10/2017 PRIMARY CARE PHYSICIAN: Dr. Kristine Jenkins SAUSAGE SMOKER: Dr. Christopher Johnson. CHIEF COMPLAINT: Chest pain and shortness of breath. HISTORY OF PRESENT ILLNESS: The patient is a 77-year-old man with a known history of ischemic cardiomyopathy and severe LV dysfunction who presents with sudden onset of chest discomfort, partially relieved with nitroglycerin. He has underlying paced rhythm. He was admitted for CHF exacerbation and rule out MO and ultimately his cardiac troponin this morning on a second set was 7. He is clinically asymptomatic for angina on IV heparin. Transiently, he became tachycardic and likely was in atrial fibrillation, was placed on IV Cardizem and transferred to the ICU. His heart rate and blood pressure stabilized. He was placed on IV oxygen and Pulmonary was consulted as well and they felt that most of his symptoms were related to his cardiac disease. On 4 liters oxygen, he is breathing comfortably. He has a history of multivessel coronary artery disease. His last cardiac catheterization was performed by Dr. Johnson and apparently he did not have targets for PCI. His last PCI was in 2016 to a vein graft. He has been compliant with his medications, although he admits he does not take Lasix daily, he only takes it as needed. He admits to having increasing weight gain, dyspnea and orthopnea over the past several days prior to his episode of angina. He is currently anticoagulated only with Plavix rather than Xarelto or Eliquis because of side effects. HOME MEDICATIONS: He was taking aspirin 81 mg daily, atorvastatin 80 mg at bedtime, Coreg 12.5 mg p.o. b.i.d., Plavix 75 mg daily, Proscar 5 mg daily, Lasix as noted above 20 mg p.r.n., insulin, Imdur 90 mg daily, lisinopril 5 mg p.o. b.i.d.. PAST MEDICAL HISTORY: As follows: He has an ischemic cardiomyopathy. His last cardiac catheterization on 07/15/2017 revealed left main had a 30% stenosis, [place] [address] CONSULTATION Name: GEORGE IGLESIAS Susi Room: [address]#: [id number] Admission: 10/09/17 Attend Phys: Do Rowley MD Discharge: 10/14/17 Date of : 38 Report #: [id number] is chronically occluded, OM1 was occluded right coronary artery had a mid-body 80% and distal 80% stenosis. Posterolateral branch had an 80% stenosis. The WALL to LAD was patent, although the LAD had a 90% stenosis distal to this takeoff. The vein graft to the PDA had only moderate disease and the stent in the vein graft to the diagonal had only 40% stenosis and there was a jump graft, which was occluded. His ejection fraction is 25-30%. He has a history of paroxysmal atrial fibrillation. He had developed bleeding on Eliquis and Plavix and his Eliquis had to be stopped. He is diabetic. He has permanent pacemaker implanted for sick sinus syndrome with a Medtronic device, has a dual chamber ICD. He has mild chronic kidney disease, baseline creatinine in the 1.4 range. SOCIAL HISTORY: He is . His is a patient of mine. He is a former smoker, quit in the early . ALLERGIES: He HAS ALLERGIES TO CEFTRIAXONE AND SULFA. REVIEW OF SYSTEMS: GASTROINTESTINAL: No nausea or vomiting. No hematemesis or melena. GENITOURINARY: No dysuria or hematuria. PULMONARY: Positive shortness of breath, no cough. HEMATOLOGIC: History of anemia. CARDIOVASCULAR: Positive chest pain, positive dyspnea, positive weight gain, positive orthopnea, positive PND, positive palpitations. SKIN: No rashes. NEUROLOGIC: Denies headaches, blurry vision, slurred speech. There are no seizures. PHYSICAL EXAMINATION: VITAL SIGNS: ID denies any fevers, chills, productive cough. His fluid balance is negative 512. GENERAL: This is a pleasant elderly male. He is resting comfortably in bed on high flow O2. He is seen in no apparent distress. HEENT: No evidence of facial asymmetry. Mouth is moist. NECK: Supple. No jugular venous distention. CARDIOVASCULAR: Regular. There is faint systolic murmur and has S3. LUNGS: Have coarse breath sounds in the bases. ABDOMEN: Nontender, mildly distended. EXTREMITIES: There is 1-2+ pretibial edema bilaterally. NEUROLOGIC: There are no focal deficits. PSYCHIATRIC: The patient has appropriate mood and affect. SKIN: Warm and dry. Electrocardiogram demonstrates sinus rhythm, V paced rhythm. LABORATORY DATA: His hemoglobin is 13.4, white blood cell count is 8.9. [place] [address] CONSULTATION Name: GEORGE IGLESIAS Room: [address]#: [id number] Admission: 10/09/17 Attend Phys: Do Rowley MD Discharge: 10/14/17 Date of : 38 Report #: [id number] is 136, potassium is 4.1, chloride 103, CO2 is 28, BUN is 24, creatinine is 1.6. Troponin I is 7.79, initial one was 0.17. Blood gas pH is 7.3, pCO2 is 36.9, pO2 is 65. A V/Q scan on 10/09/2017 showed low probability V/Q scan. IMPRESSION: 1. Unstable angina. The patient presents with acute systolic congestive heart failure as well as an elevated cardiac troponin level and chest pain compatible with angina. He has evidence of a small non-ST elevation myocardial infarction. We will continue with aggressive medical therapy with IV heparin, continue with his Plavix as he is not a redo bypass surgery candidate. We will restart his beta will therapy and wean him off his IV Cardizem for its antianginal properties. 2. Acute systolic congestive heart failure. At this point in time, I would like to diurese him with IV Lasix while cautiously monitor his renal function. He has a known history of severe LV dysfunction. 3. Status post ICD. We will continue telemetry monitoring. 4. Paroxysmal atrial fibrillation. His tachycardia upstairs on the telemetry ultimately was likely his atrial fibrillation and this seems to have resolved. He presents with a sinus rhythm with V pacing. He was previously not felt to be a candidate for triple anticoagulation because of bleeding. 5. Chronic kidney disease. We will need to monitor his renal function closely. 6. Coronary artery disease, status post coronary artery bypass graft. I will have his catheterization films reviewed by our interventionalist, but we may have to continue with medical therapy for his MO based on his poor targets on his last diagnostic cardiac catheterization. 7. Status post ICD. 8. Respiratory failure. I think this is a multifactorial problem. He has a remote history of obstructive lung disease and more likely congestive heart failure. We will diurese him with IV Lasix. <ELECTRONICALLY SIGNED> By: Soren Robert MD, FACC 10/29/17 1049 1037 [id number] Robert MD, FACC /nt
== END 2017-10-14 13:45 | disposition home or self-care (01) | DRG 280 ==
LOC: M.ERS 15:17 → M.TBA-ER 17:58 → M.2W 17:58 → M.ICU 22:40 → M.2W 10-10 22:22
PROVIDERS: Internal Medicine; Nurse Practitioner Family; Personal Emergency Response Attendant; ADMIT Internal Medicine
PROC: 5A09357 Assistance with Respiratory Ventilation, Less than 24 Consecutive Hours, Continuous Positive Airway Pressure (ICD-10-PCS; principal; 2017-10-09)
DX: I21.4 Non-ST elevation (NSTEMI) myocardial infarction (principal); J96.01 Acute respiratory failure with hypoxia; I50.21 Acute systolic (congestive) heart failure; I13.0 Hypertensive heart and chronic kidney disease with heart failure and stage 1 through stage 4 chronic kidney disease, or unspecified chronic kidney disease; E87.2 Acidosis; E78.5 Hyperlipidemia, unspecified; M19.90 Unspecified osteoarthritis, unspecified site; Z96.651 Presence of right artificial knee joint; E11.51 Type 2 diabetes mellitus with diabetic peripheral angiopathy without gangrene; N40.0 Benign prostatic hyperplasia without lower urinary tract symptoms; I25.5 Ischemic cardiomyopathy; N18.9 Chronic kidney disease, unspecified; E11.22 Type 2 diabetes mellitus with diabetic chronic kidney disease; D69.6 Thrombocytopenia, unspecified; I48.0 Paroxysmal atrial fibrillation; I49.5 Sick sinus syndrome; I25.110 Atherosclerotic heart disease of native coronary artery with unstable angina pectoris; J44.9 Chronic obstructive pulmonary disease, unspecified; Z95.1 Presence of aortocoronary bypass graft; Z95.5 Presence of coronary angioplasty implant and graft; Z90.49 Acquired absence of other specified parts of digestive tract; I25.2 Old myocardial infarction; Z85.828 Personal history of other malignant neoplasm of skin; Z87.442 Personal history of urinary calculi; Z79.899 Other long term (current) drug therapy; Z79.4 Long term (current) use of insulin; Z79.82 Long term (current) use of aspirin; Z88.2 Allergy status to sulfonamides; Z88.8 Allergy status to other drugs, medicaments and biological substances; Z87.891 Personal history of nicotine dependence; Z95.810 Presence of automatic (implantable) cardiac defibrillator; Z90.5 Acquired absence of kidney; Z85.528 Personal history of other malignant neoplasm of kidney; Z82.3 Family history of stroke

== ENCOUNTER 2017-12-02 18:03 | Inpatient (IN) | payer MEDICARE ==
[~2017-12-02] VITALS: Ht 182.9 cm; Wt 113.9 kg
[~2017-12-02 18:03] MED LIST changes: +COLACE100 MG PO; +EFFIENT10 MG PO; +METAMUCIL SUGA283 GM PO
[2017-12-02 18:11] VITALS: BP 144/75
[2017-12-02 18:39] LABS: ABSOLUTE BASOPHILS 0.1 thou/uL (0.0-0.2); ABSOLUTE EOSINOPHILS 0.2 thou/uL (0.0-0.7); ABSOLUTE LYMPHOCYTES 1.1 thou/uL (0.8-5.3); ABSOLUTE MONOCYTES 0.6 thou/uL (0.0-1.2); ABSOLUTE NEUTROPHILS 5.4 thou/uL (1.6-8.1); BASOPHILS 1.3 %; EOSINOPHILS 2.8 %; HEMATOCRIT 32.8 % (42.0-52.0); HEMOGLOBIN 10.9 gm/dL (14.0-18.0); LYMPHOCYTES 14.9 %; MCH 30.1 pg (26.0-34.0); MCHC 33.3 g/dL (28.0-37.0); MCV 90.5 fL (80.0-100.0); MONOCYTES 8.7 %; MPV 8.2 fl. (7.2-11.1); NUCLEATED RBCS 0 /100WBC; PLATELET COUNT* 90 thou/uL (150-400); POLYS 72.3 %; RBC 3.63 mil/uL (4.50-6.00); RDW-CV 15.6 % (10.5-14.5); WBC 7.5 thou/uL (4.0-11.0)
[2017-12-02 18:48] LABS: ANION GAP 9 mmol/L (7-16); BUN 32 mg/dL (7-18); CHLORIDE 103 mmol/L (98-107); CO2 26 mmol/L (21-32); CREATININE 1.7 mg/dL (0.6-1.3); GLUCOSE 112 mg/dL (70-99); POTASSIUM 5.4 mmol/L (3.5-5.1); SODIUM 138 mmol/L (136-145)
[2017-12-02 18:58] LABS: APTT 28.8 Seconds (25.0-31.3); INR 1.2
[2017-12-02 19:03] LABS: ALBUMIN 3.7 g/dL (3.4-5.0); ALKALINE PHOSPHATASE 64 U/L (46-116); CK-MB MASS 1.5 ng/mL (<0.5-3.6); LIPASE 105 U/L (73-393); MAGNESIUM 1.7 mg/dL (1.8-2.4); NT-PRO BRAIN NAT PEPTIDE 4494 pg/mL (<300); SGOT 40 U/L (15-37); SGPT 24 U/L (30-65); TOTAL BILIRUBIN 1.2 mg/dL (<0.1-1.0); TOTAL PROTEIN 6.9 g/dL (6.4-8.2); TROPONIN-I LEVEL <0.06 ng/mL (<0.06)
[2017-12-02 21:05] VITALS: BP 140/71
[2017-12-02 21:15] VITALS: BP 160/84
[2017-12-03] VITALS: BP 149/73
[2017-12-03 04:00] VITALS: BP 128/48
[2017-12-03 05:27] LABS: ABSOLUTE BASOPHILS 0.1 thou/uL (0.0-0.2); ABSOLUTE EOSINOPHILS 0.2 thou/uL (0.0-0.7); ABSOLUTE LYMPHOCYTES 0.9 thou/uL (0.8-5.3); ABSOLUTE MONOCYTES 0.6 thou/uL (0.0-1.2); ABSOLUTE NEUTROPHILS 4.7 thou/uL (1.6-8.1); BASOPHILS 1.4 %; EOSINOPHILS 2.8 %; HEMATOCRIT 32.6 % (42.0-52.0); HEMOGLOBIN 10.8 gm/dL (14.0-18.0); LYMPHOCYTES 14.1 %; MCH 29.9 pg (26.0-34.0); MCHC 33.1 g/dL (28.0-37.0); MCV 90.2 fL (80.0-100.0); MONOCYTES 9.6 %; MPV 8.2 fl. (7.2-11.1); NUCLEATED RBCS 0 /100WBC; PLATELET COUNT* 87 thou/uL (150-400); POLYS 72.1 %; RBC 3.62 mil/uL (4.50-6.00); RDW-CV 15.3 % (10.5-14.5); WBC 6.5 thou/uL (4.0-11.0)
[2017-12-03 05:50] LABS: CALCIUM 9.6 mg/dL (8.5-10.1); CREATININE 1.7 mg/dL (0.6-1.3); POTASSIUM 4.3 mmol/L (3.5-5.1)
[2017-12-03 08:30] VITALS: BP 137/76
[2017-12-03 12:00] VITALS: BP 109/88
--- NOTE | 2017-12-03 14:53 | EKG ---
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: : 1940 Requested By: Seamus Chung Order Number: [id number] MD: Christopher Johnson Measurements Intervals [place] Rate: 70 P: 257 [place]: 149 QRS: -75 QRSD: 198 T: 109 QT: 471 QTc: 509 Interpretive Statements Ventricular-paced complexes No further analysis attempted due to paced rhythm Compared to ECG 10/14/2017 08:51:47 no change Electronically Signed On 12-03-2017 14:53:12 CDT by Christopher Johnson [email or web address] <ELECTRONICALLY SIGNED> By: Christopher Johnson MD, [facility] 12/03/17 1453 1809 1809 Christopher Johnson MD, [facility] /EPI
--- NOTE | 2017-12-03 15:14 | 2DMMODE ---
[place] [address] 2 D/M-MODE ECHOCARDIOGRAM Name: GEORGE IGLESIAS Room: [address] IN [facility]#: [id number] Admission: 12/02/17 Attend Phys: Parth Cabrera, Discharge: Date of : 36 Date of Service: 12/03/17 1514 Report #: [id number] THIS REPORT FOR: //name// APPROVED REPORT Study performed: 12/03/2017 14:26:21 EXAM: Comprehensive 2D, Doppler, and color-flow Echocardiogram Patient Location: In-Patient Room #: [facility] Status: routine BSA: 2.35 HR: 70 bpm BP: 137/76 mmHg Rhythm: NSR Other Information Study Quality: Good Indications Dyspnea Cardiomyopathy 2D Dimensions IVSd: 13.88 (7-11mm) LVOT Diam: 22.12 (18-24mm) LVDd: 59.19 mm PWd: 13.46 (7-11mm) Ascending Ao: 35.88 (22-36mm) LVDs: 51.34 (25-40mm) Aortic Root: 40.54 mm Volumes Left Atrial Volume (Systole) LA ESV Index: 53.90 mL/m2 Aortic Valve AoV Peak Sidney.: 1.27 m/s AO Peak Gr.: 6.46 mmHg LVOT Max P.06 mmHg AO Mean Gr.: 4.11 mmHg LVOT Mean P.74 mmHg LVOT Max V: 1.01 m/s AO V2 VTI: 22.34 cm LVOT Mean V: 0.59 m/s BRII (VTI): 2.88 cm2 LVOT V1 VTI: 16.74 cm Mitral Valve MV Decel. Time: 137.47 ms MV PHT: 39.87 [place] [address] 2 D/M-MODE ECHOCARDIOGRAM Name: GEORGE IGLESIAS Room: [address] IN [facility]#: [id number] Admission: 12/02/17 Attend Phys: Parth Cabrera, Discharge: Date of : 36 Date of Service: 12/03/17 1514 Report #: [id number] MVA (PHT): 5.52 cm2 TDI Medial E' Sidney.: 0.06 m/s Lateral E' Sidney.: 0.05 m/s Pulmonary Valve PV Peak Sidney.: 0.86 m/s PV Peak Gr.: 2.95 mmHg Tricuspid Valve RAP Estimate: 5.00 mmHg TR Peak Gr.: 29.63 mmHg RVSP: 34.62 mmHg PA Pressure: 34.62 mmHg Left Ventricle Left ventricle is mildly dilated. Regional wall motion abnormalities are noted. Mild concentric left ventricular hypertrophy. Left ventricular systolic function is moderately decreased. LVEF is 30-35%. Grade IV - fixed restrictive diastolic dysfunction. Right Ventricle The right ventricle is normal size. The right ventricular systolic function is normal. Pacemaker lead is present in the right ventricle. Atria Left atrium is severely dilated. Right atrium is moderately dilated. Aortic Valve Mild aortic valve sclerosis. No aortic regurgitation is present. There is no aortic valvular stenosis. Mitral Valve The mitral valve is normal in structure. Mild mitral regurgitation. No evidence of mitral valve stenosis. Tricuspid Valve The tricuspid valve is normal in structure. Mild tricuspid regurgitation. Mild pulmonary hypertension. Pulmonic Valve The pulmonary valve is normal in structure. Mild pulmonic regurgitation. Great Vessels The aortic root is normal in size[place] [address] 2 D/M-MODE ECHOCARDIOGRAM Name: GEORGE IGLESIAS Room: [address] IN [facility]#: [id number] Admission: 12/02/17 Attend Phys: Parth Cabrera, Discharge: Date of : 36 Date of Service: 12/03/17 1514 Report #: [id number] visualized. Pericardium There is no pericardial effusion. <Conclusion> Left ventricle is mildly dilated. Mild concentric left ventricular hypertrophy. Left ventricular systolic function is moderately decreased. LVEF is 30-35%. Grade IV - fixed restrictive diastolic dysfunction. Left atrium is severely dilated. Right atrium is moderately dilated. Mild aortic valve sclerosis. Mild mitral regurgitation. Mild tricuspid regurgitation. Mild pulmonary hypertension. <ELECTRONICALLY SIGNED> By: Bhargav Hernandez MD, [facility] 12/03/17 1514 13 151 Bhargav Hernandez MD, FACC /INF
[2017-12-03 20:00] VITALS: BP 105/78
[2017-12-04] VITALS: BP 121/46
[2017-12-04 04:00] VITALS: BP 118/53
[2017-12-04 05:16] LABS: ABSOLUTE BASOPHILS 0.1 thou/uL (0.0-0.2); ABSOLUTE EOSINOPHILS 0.2 thou/uL (0.0-0.7); ABSOLUTE LYMPHOCYTES 1.4 thou/uL (0.8-5.3); ABSOLUTE MONOCYTES 0.9 thou/uL (0.0-1.2); ABSOLUTE NEUTROPHILS 4.3 thou/uL (1.6-8.1); BASOPHILS 1.1 %; EOSINOPHILS 3.1 %; HEMATOCRIT 33.7 % (42.0-52.0); HEMOGLOBIN 11.1 gm/dL (14.0-18.0); LYMPHOCYTES 20.8 %; MCH 29.9 pg (26.0-34.0); MCV 90.5 fL (80.0-100.0); NUCLEATED RBCS 0 /100WBC; PLATELET COUNT* 81 thou/uL (150-400); RBC 3.72 mil/uL (4.50-6.00); RDW-CV 15.1 % (10.5-14.5); WBC 6.8 thou/uL (4.0-11.0)
[2017-12-04 05:27] LABS: ALBUMIN 3.5 g/dL (3.4-5.0); CALCIUM 9.2 mg/dL (8.5-10.1); POTASSIUM 3.7 mmol/L (3.5-5.1); TOTAL BILIRUBIN 1.1 mg/dL (<0.1-1.0); TOTAL PROTEIN 6.5 g/dL (6.4-8.2)
[2017-12-04 08:15] VITALS: BP 127/78
--- NOTE | 2017-12-04 09:21 | CON ---
[address] [address] CONSULTATION Name: GEORGE IGELSIAS Room: [address] IN .R.#: [id number] Admission: 12/02/17 Attend Phys: Parth Cabrera MD Discharge: Date of : 36 Report #: [id number] THIS REPORT FOR: //name// CC: Parth Cabrera Bhargav Hernandez DATE OF SERVICE: 12/03/2017 REFERRING PHYSICIAN: Parth Cabrera MD CHIEF COMPLAINT: Exertional shortness of breath. HISTORY OF PRESENT ILLNESS: The patient is a 77-year-old male who has chronic dyspnea for the last couple of months or so. He states that he had been having trouble and had a downhill course since being discharged from the hospital a month or so ago. Despite his usual medications, he has not improved. He presented to the hospital with the above symptoms. In addition, he has not had any fever or chills. He has not had any complaints of nausea, vomiting, chest or abdominal pain. He denies headache, numbness, tingling, or blurred vision. Since being in the hospital, he has improved. He is less dyspneic. He has had Lasix and states that he has had a good urine output. PAST MEDICAL HISTORY: Significant for coronary artery disease. He has had coronary bypass surgery in the past. He has had stents placed as well. He has a pacemaker as well. He has a history of peripheral vascular disease. He has a stent in his distal aorta according to the patient. History of diabetes, insulin-dependent; and hypertension. He has had prostatic hypertrophy, peptic ulcer disease, arthritis, cardiomyopathy, knee replacement on the right. He had a left kidney tumor and had a nephrectomy about 4 years or so ago. SOCIAL HISTORY: He is a prior smoker, 30-35 pack year smoking history. He quit at the age of 48. REVIEW OF SYSTEMS: System review negative other than what is outlined above. FAMILY HISTORY: Noncontributory for his age. ALLERGIES: SULFA DRUGS AND CEFTRIAXONE. CURRENT MEDICATIONS: Lasix, Benadryl, lisinopril, Lipitor, subcutaneous Lovenox, finasteride, carvedilol, aspirin, insulin, Protonix. PHYSICAL EXAMINATION: VITAL SIGNS: Blood pressure 137/76, respiratory rate of 18 and nonlabored, pulse rate 70 and regular, temperature 97.8 degrees. His weight is [address] [place] [address] CONSULTATION Name: GEORGE GILESIAS Room: [address]#: [id number] Admission: 12/02/17 Attend Phys: Parth Cabrera MD Discharge: Date of : 38 Report #: [id number] GENERAL APPEARANCE: Awake, alert, oriented, in no respiratory distress. HEAD: Atraumatic. EYES: Pupils are round, equal, reactive. ORAL CAVITY: Moist. NECK: No adenopathy. No carotid bruits. CHEST: Diminished breath sounds. No wheezes or crackles. CARDIOVASCULAR: Regular rhythm. I cannot appreciate any murmurs, rubs or S3. ABDOMEN: Soft, without organomegaly. Obese. EXTREMITIES: Trace of edema greater on the right than the left. SKIN: Warm, dry, no rash. Pulses equal bilaterally. LYMPHATICS: Negative. NEUROLOGIC: Moves all 4 extremities. Strength equal. LABORATORY DATA: ProBNP 4494. Sodium 141, potassium 4.3, chloride 104, CO2 of 27, BUN of 34, creatinine 1.7, EGFR 39. Troponin on admission less than 0.06. Hemoglobin and hematocrit of 11 and 33, white count 6500. MEDICAL IMAGING STUDIES: Venous ultrasound of the lower extremities did not reveal any evidence of thromboembolic disease. Ventilation perfusion scan was interpreted as low probability for pulmonary emboli. Chest x-ray with cardiomegaly and some interstitial edema changes bilaterally. Reviewing additional records, a 2D echocardiogram was last performed on 05/08/2016 revealing cardiomyopathy with an EF of 30-35%, akinesis of the distal anteroseptal apical myocardium. The right ventricle was mildly dilated, right atrium was normal in size, left atrium moderately to severely dilated. Aortic valve without stenosis or regurgitation. Mitral valve with [id number] regurgitation. Pulmonary artery pressures were in the normal range. ASSESSMENT: 1. Acute respiratory insufficiency. 2. Congestive heart failure. 3. Ischemic cardiomyopathy, most likely. 4. Peripheral vascular disease. 5. History of kidney carcinoma, status post left nephrectomy. 6. Chronic obstructive airways disease by history. The patient will need complete pulmonary function evaluation. RECOMMENDATION: The patient appears to be clinically improving. He has been diuresed effectively. There is no evidence of thromboembolic disease or pneumonia. He has had brisk diuresis with the diuretics. Suspect that his congestive failure is a predominant component of his dyspnea, although COPD is a consideration considering his smoking history. I did recommend he undergo outpatient pulmonary function studies. [address] [place] [address] CONSULTATION Name: GEORGE IGLESIAS Room: [address] [facility] IN .R.#: [id number] Admission: 12/02/17 Attend Phys: Parth Cabrera MD Discharge: Date of : 38 Report #: [id number] Otherwise, no changes today in his medication. We will follow with you. <ELECTRONICALLY SIGNED> By: Espinoza Cantu MD 12/04/17 0921 1215 1748Alvandana Cantu MD /nt
[2017-12-04] MEDS ORDERED: LASIX 20 MG TAB20 MG PO (11:13)
== END 2017-12-04 14:30 | disposition home or self-care (01) | DRG 291 ==
LOC: M.ERS 18:03 → M.TBA-ER 18:49 → M.2W 18:49
PROVIDERS: Family Medicine; ADMIT Internal Medicine
DX: I13.0 Hypertensive heart and chronic kidney disease with heart failure and stage 1 through stage 4 chronic kidney disease, or unspecified chronic kidney disease (principal); I50.43 Acute on chronic combined systolic (congestive) and diastolic (congestive) heart failure; N17.9 Acute kidney failure, unspecified; J84.9 Interstitial pulmonary disease, unspecified; Z94.0 Kidney transplant status; J44.9 Chronic obstructive pulmonary disease, unspecified; I25.5 Ischemic cardiomyopathy; N18.9 Chronic kidney disease, unspecified; E11.22 Type 2 diabetes mellitus with diabetic chronic kidney disease; I48.0 Paroxysmal atrial fibrillation; I25.10 Atherosclerotic heart disease of native coronary artery without angina pectoris; M19.90 Unspecified osteoarthritis, unspecified site; E78.5 Hyperlipidemia, unspecified; E11.42 Type 2 diabetes mellitus with diabetic polyneuropathy; N40.0 Benign prostatic hyperplasia without lower urinary tract symptoms; Z96.651 Presence of right artificial knee joint; Z95.5 Presence of coronary angioplasty implant and graft; Z95.810 Presence of automatic (implantable) cardiac defibrillator; Z79.82 Long term (current) use of aspirin; Z79.4 Long term (current) use of insulin; Z79.899 Other long term (current) drug therapy; Z95.1 Presence of aortocoronary bypass graft; Z79.01 Long term (current) use of anticoagulants; Z86.711 Personal history of pulmonary embolism; Z88.1 Allergy status to other antibiotic agents; Z88.2 Allergy status to sulfonamides; Z90.49 Acquired absence of other specified parts of digestive tract; I25.2 Old myocardial infarction; Z87.11 Personal history of peptic ulcer disease; Z85.828 Personal history of other malignant neoplasm of skin; Z87.442 Personal history of urinary calculi; Z95.820 Peripheral vascular angioplasty status with implants and grafts; Z87.891 Personal history of nicotine dependence; Z90.5 Acquired absence of kidney; Z85.528 Personal history of other malignant neoplasm of kidney

== ENCOUNTER 2018-06-23 07:32 | Observation (INO) | payer MEDICARE ==
[~2018-06-23] VITALS: Ht 182.9 cm; Wt 112.9 kg
[2018-06-23] VITALS (11 sets, daily range): BP systolic 125–147; BP diastolic 64–78
--- NOTE | ~2018-06-23 | H ---
[address] [address] HISTORY AND PHYSICAL Name: GEORGE IGLESIAS Room: [address] Damari Garcia#: [id number] Admission: 06/23/18 Attend Phys: Corby Salgado MD, Discharge: 06/24/18 Date of : 38 Report #: [id number] THIS REPORT FOR: //name// Please refer to the History and Physical performed in the physician's office. By: [id number] Records Staff STEVE /SANTOS
[2018-06-23 08:27] LABS: HEMOGLOBIN 11.9 gm/dL (14.0-18.0); MCH 29.2 pg (26.0-34.0); MCHC 33.1 g/dL (28.0-37.0); MCV 88.2 fL (80.0-100.0); MPV 8.1 fl. (7.2-11.1); RBC 4.09 mil/uL (4.50-6.00); RDW-CV 15.1 % (10.5-14.5); WBC 5.7 thou/uL (4.0-11.0)
[2018-06-23 08:40] LABS: APTT 30.8 Seconds (25.0-31.3); INR 1.2; PROTIME 11.8 Seconds (9.20-11.50)
[2018-06-23 08:43] LABS: ALBUMIN 3.6 g/dL (3.4-5.0); ALKALINE PHOSPHATASE 61 U/L (46-116); ANION GAP 10 mmol/L (7-16); BUN 32 mg/dL (7-18); CALCIUM 8.7 mg/dL (8.5-10.1); CHLORIDE 104 mmol/L (98-107); CHOLESTEROL 90 mg/dL (<200); CO2 24 mmol/L (21-32); CREATININE 1.8 mg/dL (0.6-1.3); GLUCOSE 137 mg/dL (70-99); HDL CHOLESTEROL 31 mg/dL (>40); LDL CHOLESTEROL 45 mg/dL (<100); POTASSIUM 4.6 mmol/L (3.5-5.1); SGOT 18 U/L (15-37); SGPT 20 U/L (30-65); SODIUM 138 mmol/L (136-145); TC:HDL 2.9 Ratio (Not establshd); TOTAL BILIRUBIN 1.1 mg/dL (<0.1-1.0); TOTAL PROTEIN 6.6 g/dL (6.4-8.2); TRIGLYCERIDE 71 mg/dL (<150); VLDL 14 mg/dL (<40)
[2018-06-23 08:44] LABS: SERUM ASSESSMENT Clear
--- NOTE | 2018-06-23 16:00 | EKG ---
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: : 1940 Requested By: Corby Salgado Order Number: [id number] Ritika MD: Corby Salgado Measurements Intervals [place] Rate: 70 P: 0 [place]: 171 QRS: -74 QRSD: 204 T: 115 QT: 494 QTc: 534 Interpretive Statements Ventricular-paced complexes No further analysis attempted due to paced rhythm Compared to ECG 12/02/2017 18:09:59 No significant changes Electronically Signed On 06-23-2018 16:00:37 CDT by Corby Salgado [email or web address] <ELECTRONICALLY SIGNED> By: Corby Salgado MD, [facility] 06/23/18 1600 0847 0847 Corby Salgado MD, [facility] /EPI
[2018-06-24] VITALS: BP 125/59
[2018-06-24 04:00] VITALS: BP 132/74
[2018-06-24 08:00] VITALS: BP 131/77
[2018-06-24 08:14] VITALS: BP 139/71
[2018-06-24 08:35] LABS: HEMATOCRIT 37.8 % (42.0-52.0); HEMOGLOBIN 12.3 gm/dL (14.0-18.0); MCH 28.7 pg (26.0-34.0); MCHC 32.4 g/dL (28.0-37.0); MCV 88.4 fL (80.0-100.0); MPV 8.7 fl. (7.2-11.1); RBC 4.28 mil/uL (4.50-6.00); RDW-CV 15.2 % (10.5-14.5); WBC 5.9 thou/uL (4.0-11.0)
[2018-06-24 09:20] LABS: ALBUMIN 3.7 g/dL (3.4-5.0); CREATININE 1.6 mg/dL (0.6-1.3); POTASSIUM 4.5 mmol/L (3.5-5.1); TOTAL BILIRUBIN 1.1 mg/dL (<0.1-1.0); TOTAL PROTEIN 6.8 g/dL (6.4-8.2); TROPONIN-I LEVEL 0.25 ng/mL (<0.06)
[2018-06-24 09:44] VITALS: BP 131/77
--- NOTE | 2018-06-24 17:01 | EKG ---
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: : 1940 Requested By: Corby Salgado Order Number: [id number] Ritika MD: Bhargav Hernandez Measurements Intervals [place] Rate: 70 P: 0 MD: 184 QRS: -76 QRSD: 206 T: 112 QT: 488 QTc: 527 Interpretive Statements Ventricularly paced rhythm Premature ventricular complex Compared to ECG 12/02/2017 18:09:59 Ventricular premature complex(es) now present No significant changes noted Electronically Signed On 06-24-2018 17:01:43 CDT by Bhargav Hernandez [email or web address] <ELECTRONICALLY SIGNED> By: Bhargav Hernandez MD, FACC 06/24/18 1701 1317 1317 Bhargav Hernandez MD, [facility] /EPI
--- NOTE | 2018-06-24 17:06 | EKG ---
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
--- NOTE | 2018-06-25 15:06 | CARD ---
[address] [address] CARDIAC CATH REPORT Name: GEORGE IGLESIAS Room: [address] Damari Garcia#: [id number] Admission: 06/23/18 Attend Phys: Corby Salgado MD, Discharge: 06/24/18 Date of : 38 Report #: [id number] THIS REPORT FOR: //name// APPROVED REPORT Study performed: 06/23/2018 08:56:03 Patient Details The patient is a 78 year-old male Event Personnel Corby Salgado Automotive Shop Foreman, Meche Little RN RN, George Rowell ROUTER MACHINE OPERATOR Scrub, Jesus Ndiaye ROUTER MACHINE OPERATOR Monitor Procedures Performed Left Heart Cath w/or w/o Coronaries [id number] [facility] Revasc Graft Single DIAG C9604 SVGREVSING Hemostasis w/ Angioseal ; aortocoronary saphenous vein bypass graft study, Left Heart Catheterization Indication Dyspnea, Positive stress test Risk Factors Obesity, Hypercholesterolemia, Hypertension, Diabetes Admission/Lab Medications/Medications given during procedure Aspirin, Platelet Aff. Inhib. Procedure Narrative The patient was brought electively to the Cardiac Catheterization Laboratory and was prepped and draped in a sterile manner. The right femoral was infiltrated with 2% Lidocaine subcutaneous anesthesia. A [place] 6 FR sheath was inserted into the right femoral artery. Coronary angiography was performed using coronary diagnostic catheters. The right coronary system was accessed and visualized with a AR1 Mod 6fr catheter. The left coronary system was accessed and visualized with a JL4 catheter. The left ventricle was accessed and visualized with a 6 Fr Straight Pigtail catheter. Left ventricular/Aortic Valve gradient assessed via catheter pullback. Left ventriculogram was performed in [place]ALSKI projection. Pre-demployment femoral angiogram was performed . Closure device was deployed with a 6 Fr Angioseal STS 6Fr. The patient tolerated the procedure well and there were no complications associated with the procedure. [place] [address] CARDIAC CATH REPORT Name: GEORGE IGLESIAS Room: [address] M..#: [id number] Admission: 06/23/18 Attend Phys: Corby Salgado MD, Discharge: 06/24/18 Date of : 38 Report #: [id number] Intraoperative Conscious Sedation Fentanyl 50 mcg Dose: 108 mGy Contrast Type and Amount: Visipaque 175 ml [place] Artery Percent Stenosis #1 widely patent saphenous vein graft to the distal right quadrant with 30% proximal graft narrowing #2 patent saphenous vein graft to 2 prominent diagonals with diabetic percent proximal graft in-stent restenosis #3 recently defined widely patent WALL graft to the LAD Diagnostic Cath Left Main 70% distal narrowing LAD 100% proximal occlusion Circumflex 70% proximal stenosis with 100% mid vessel occlusion Right Coronary Dominant vessel with 75% proximal and mid vessel stenosis and 90% distal narrowing Left Ventriculography Left Ventriculography was not performed. Hemodynamics The aortic pressure is 125/61 mmHg with a mean of 78 mmHg. The left ventricular pressure is 132/9 mmHg with a mean of mmHg. The left ventricular end diastolic pressure is 16 mmHg. There was no gradient across the aortic valve upon pullback. PCI Technique Lesion Anticoagulation was achieved with Angiomax. Patient was preloaded with Angiomax IV 17 ml. Percutaneous coronary intervention was performed on the proximal portion of the saphenous vein graft to 2 diagonal branches. The lesion stenosis prior to intervention was 90% with PAULINA 3 flow. A 6Fr AR 1 Guide Catheter was used to engage the ostium. A IG: BMW 190cm Interventional Guidewire was used to cross the lesion. BALLOON DILATION A Balloon catheter NC Trek RX 3.25 X 12 was inserted and inflated up to 16.00atm for 9seconds. Additional Inflation: 18.00atm [place] 11[place]. [place] [address] CARDIAC CATH REPORT Name: KELSIEGEORGE Goldman Room: [address]#: [id number] Admission: 06/23/18 Attend Phys: Corby Salgado MD, Discharge: 06/24/18 Date of : 38 Report #: [id number] STENT DEPLOYMENT A drug-eluting stent [place] RX Stent 3.0X26mm was inserted and inflated up to 20.00atm for 11seconds. Additional Inflation: 22.00atm for 8seconds. POST STENT DEPLOYMENT BALLOON DILATION A Balloon catheter NC Trek RX 3.0 X 12 was inserted and inflated up to 24.00atm for 13seconds. Final angiography reveals 10 % stenosis with PAULINA 3 flow. Conclusion #1 severe multivessel coronary artery disease characterized by the following: A 70% distal left main coronary artery narrowing B1 100% proximal LAD occlusion C 75% proximal and mid right coronary stenosis with 90% distal narrowing, this being a dominant vessel #2 graft study characterized by the following: A widely patent saphenous vein graft to the distal right coronary artery with 30% proximal graft narrowing B patent saphenous vein graft to diagonal branches of the LAD with 90% proximal graft in-stent restenosis C recent defined widely patent WALL graft to the LAD #3 mild elevation of left ventricular end-diastolic pressure at rest #4 successful percutaneous coronary intervention with deployment of a drug-eluting stent at the site of 90% stenosis in the proximal portion of the vein graft to two diagonals with 10% residual narrowing and PAULINA 3 flow to the distal circulation Recommendations Cardiac Risk Reduction Program Aggressive Medical Therapy [place] [address] CARDIAC CATH REPORT Name: GEORGE IGLESIAS Room: [address] Damari Garcia#: [id number] Admission: 06/23/18 Attend Phys: Corby Salgado MD, Discharge: 06/24/18 Date of : 38 Report #: [id number] Aspirin (any) Ticagrelor Diagnostic Cath Approved by: Corby Salgado MD Date/Time: 06/25/2018 15:03:00 <ELECTRONICALLY SIGNED> By: Corby Salgado MD, [facility] 06/25/18 1506 1506 1506Jotrinidad Salgado MD, FAC /INF
--- NOTE | 2018-07-02 11:20 | D ---
[address] [address] DISCHARGE SUMMARY Name: KELSIEGEORGE Room: [address] Damari Garcia#: [id number] Admission: 06/23/18 Attend Phys: Corby Salgado MD, Discharge: 06/24/18 Date of : 38 Report #: [id number] THIS REPORT FOR: //name// CC: Corby Tucker'Brien DATE OF SERVICE: 06/24/2018 FINAL DISCHARGE DIAGNOSES: 1. Abnormal nuclear stress test with inducible anterolateral ischemia. 2. Coronary artery disease. 3. Status post coronary artery bypass grafting. 4. Status post percutaneous coronary intervention of the vein graft to the diagonal on 06/23/2018. 5. Hypertension. 6. Paroxysmal atrial fibrillation. 7. Hyperlipidemia. 8. Type 2 diabetes. 9. Ischemic cardiomyopathy. 10. Renal insufficiency. PROCEDURES: 06/24/2018 -- left heart catheterization, selective coronary arteriography, aortocoronary saphenous vein bypass graft study, and percutaneous coronary intervention of the vein graft to the 2 prominent diagonal branches. The patient is a very pleasant and active 78-year-old male with multiple medical problems including hypertension, coronary artery disease, hyperlipidemia, and renal insufficiency. He is status post remote coronary artery bypass grafting and more recent percutaneous coronary interventions. Of late, he has noted increased dyspnea on exertion and stress testing revealed inducible anterolateral ischemia. In that context, cardiac catheterization was performed, which revealed a widely patent WALL graft to the LAD, widely patent vein graft to the right coronary artery and 90% stenosis of the vein graft to the diagonals. The [place] coronaries were totally occluded in the proximal LAD and mid circumflex portion was 75, 75 and 90% right coronary stenoses. The only area receiving suboptimal perfusion when the 2 diagonals filled via a vein graft with 90% proximal graft in-stent restenosis. WALL graft to the LAD was recently defined to be widely patent and the vein graft to the right coronary artery was widely patent. In this context, I performed percutaneous coronary intervention, deploying 1 drug-eluting stent in the proximal portion of the [place] [address] DISCHARGE SUMMARY Name: GEORGE IGLESIAS Room: [address] Ian.#: [id number] Admission: 06/23/18 Attend Phys: Corby Salgado MD, Discharge: 06/24/18 Date of : 38 Report #: [id number] with 10% residual narrowing at the site of previously noted 90% obstruction with PAULINA 3 flow of the distal vessel. The patient did well post-procedurally with good hemostasis at the right femoral site of catheterization. LABORATORY DATA: Revealed a hemoglobin of 12.3, white blood cell count of 5900 with 79,000 platelets. Sodium 139, potassium 4.5, BUN 30, creatinine 1.6. The patient ambulated in the hallways without difficulty. He was discharged to home in stable condition on the following medications: Aspirin 81 mg daily, atorvastatin 80 mg at bedtime, carvedilol 12.5 mg b.i.d., Proscar 5 mg daily, furosemide 20 mg daily, hydrochlorothiazide 25 mg daily, NovoLog insulin 70 units at breakfast and 9 units at lunch, Levemir insulin 23 units subcutaneously at bedtime or 24 units contingent on sugars, isosorbide mononitrate 30 mg daily, lisinopril 5 mg daily, multivitamin, Centrum Silver 1 tablet daily, prasugrel 10 mg daily, Metamucil 1 teaspoon at bedtime, tamsulosin 0.4 mg daily. Additional medicines included acetaminophen p.r.n. and p.r.n. sublingual nitroglycerin. The patient is scheduled to return to see me on 08/04/2018 at 1000 hours. <ELECTRONICALLY SIGNED> By: [facility] Salgado MD, [facility] 07/02/18 1120 1511 2250Jotrinidad Salgado MD, FACC /nt
== END 2018-06-24 11:30 | disposition home or self-care (01) ==
LOC: M.CL 07:32 → M.2W 10:34 → M.TBA-CV 10:34 → M.2W 10:57
PROVIDERS: ADMIT Internal Medicine
DX: I25.10 Atherosclerotic heart disease of native coronary artery without angina pectoris (principal); I10 Essential (primary) hypertension; I48.0 Paroxysmal atrial fibrillation; E78.5 Hyperlipidemia, unspecified; E11.9 Type 2 diabetes mellitus without complications; I25.5 Ischemic cardiomyopathy; N28.9 Disorder of kidney and ureter, unspecified; R94.39 Abnormal result of other cardiovascular function study; E66.9 Obesity, unspecified; E78.00 Pure hypercholesterolemia, unspecified; Z95.1 Presence of aortocoronary bypass graft; Z98.61 Coronary angioplasty status

== ENCOUNTER 2018-08-13 09:40 | Inpatient (IN) | payer MEDICARE ==
[~2018-08-13] VITALS: Ht 182.9 cm; Wt 106.1 kg
[2018-08-13 10:02] LABS: ABSOLUTE BASOPHILS 0.1 thou/uL (0.0-0.2); ABSOLUTE EOSINOPHILS 0.2 thou/uL (0.0-0.7); ABSOLUTE LYMPHOCYTES 0.8 thou/uL (0.8-5.3); ABSOLUTE MONOCYTES 0.7 thou/uL (0.0-1.2); ABSOLUTE NEUTROPHILS 5.5 thou/uL (1.6-8.1); BASOPHILS 1.2 %; EOSINOPHILS 2.9 %; HEMATOCRIT 35.7 % (42.0-52.0); HEMOGLOBIN 11.9 gm/dL (14.0-18.0); LYMPHOCYTES 10.5 %; MCHC 33.2 g/dL (28.0-37.0); MCV 87.4 fL (80.0-100.0); MONOCYTES 9.9 %; MPV 7.9 fl. (7.2-11.1); NUCLEATED RBCS 0 /100WBC; PLATELET COUNT* 89 thou/uL (150-400); POLYS 75.5 %; RBC 4.09 mil/uL (4.50-6.00); RDW-CV 15.2 % (10.5-14.5); WBC 7.3 thou/uL (4.0-11.0)
[2018-08-13 10:29] LABS: ALKALINE PHOSPHATASE 71 U/L (46-116); ANION GAP 9 mmol/L (7-16); CHLORIDE 105 mmol/L (98-107); CK-MB MASS 1.1 ng/mL (<0.5-3.6); CO2 25 mmol/L (21-32); NT-PRO BRAIN NAT PEPTIDE 8051 pg/mL (<300); POTASSIUM 4.4 mmol/L (3.5-5.1); SGOT 16 U/L (15-37); SGPT 22 U/L (30-65); SODIUM 139 mmol/L (136-145); TOTAL PROTEIN 6.9 g/dL (6.4-8.2); TROPONIN-I LEVEL <0.06 ng/mL (<0.06)
[2018-08-13 10:33] LABS: APTT 33.8 Seconds (25.0-31.3); INR 1.1; PROTIME 11.5 Seconds (9.20-11.50)
[2018-08-13 10:35] LABS: ALBUMIN 3.5 g/dL (3.4-5.0); CALCIUM 8.8 mg/dL (8.5-10.1); CREATININE 1.7 mg/dL (0.6-1.3); GLUCOSE 132 mg/dL (70-99); LIPASE 105 U/L (73-393)
[2018-08-13 10:43] LABS: MAGNESIUM 1.9 mg/dL (1.8-2.4)
--- NOTE | 2018-08-13 12:36 | NUR ---
NEW IV STARTED BY FELT HAT FLANGING OPERATOR
--- NOTE | 2018-08-13 12:50 | NUR ---
PT EATING LUNCH, INDEPENDENT
--- NOTE | 2018-08-13 15:22 | EKG ---
[place] [address] ELECTROCARDIOGRAM REPORT Name: GEORGE IGLESIAS Room: [place] [address] ADM IN [facility].#: [id number] Admission: 08/13/18 Attend Phys: Gurpreet Miller Discharge: Date of : 38 Report #: [id number] THIS REPORT FOR: //name// [facility] ED Test Date: 2018-08-13 Test Time: 09:48:52 Pat Name: GEORGE IGLESIAS Department: Room: [facility] Gender: M Trauma Therapist: [facility] : 1940 Requested By: Seamus Chung Order Number: [id number] MD: Christopher Johnson Measurements Intervals [place] Rate: 70 P: 0 [place]: 45 QRS: -76 QRSD: 201 T: 108 QT: 474 QTc: 512 Interpretive Statements Ventricular-paced complexes atrial fibrillation No further analysis attempted due to paced rhythm Compared to ECG 06/24/2018 08:10:50 No significant changes Electronically Signed On 08-13-2018 15:22:28 CDT by Christopher Johnson [email or web address] <ELECTRONICALLY SIGNED> By: Christopher Johnson MD, [facility] 08/13/18 1522 0948 0948 Christopher Johnson MD, [facility] /EPI
--- NOTE | 2018-08-13 16:05 | 2DMMODE ---
[place] [address] 2 D/M-MODE ECHOCARDIOGRAM Name: GEORGE IGLESIAS Room: [place] [address] ADM IN [facility]#: [id number] Admission: 08/13/18 Attend Phys: Annmarie Baer Discharge: Date of : 36 Date of Service: 08/13/18 1604 Report #: [id number] THIS REPORT FOR: //name// APPROVED REPORT Study performed: 08/13/2018 14:56:22 EXAM: Comprehensive 2D, Doppler, and color-flow Echocardiogram Patient Location: In-Patient Room #: er Status: routine BSA: 2.30 HR: 72 bpm BP: 152/77 mmHg Rhythm: Atrial Fibrillation Other Information Study Quality: Good Indications Dyspnea 2D Dimensions IVSd: 11.77 (7-11mm) LVOT Diam: 22.04 (18-24mm) LVDd: 62.52 mm PWd: 9.79 (7-11mm) Ascending Ao: 37.73 (22-36mm) LVDs: 46.96 (25-40mm) Aortic Root: 39.65 mm Volumes Left Atrial Volume (Systole) LA ESV Index: 56.70 mL/m2 Aortic Valve AoV Peak Sidney.: 1.39 m/s AO Peak Gr.: 7.77 mmHg LVOT Max P.01 mmHg AO Mean Gr.: 4.18 mmHg LVOT Mean P.94 mmHg LVOT Max V: 0.71 m/s AO V2 VTI: 24.17 cm LVOT Mean V: 0.44 m/s BRII (VTI): 1.95 cm2 LVOT V1 VTI: 12.38 cm Mitral Valve MV Decel. Time: 132.85 ms MV PHT: 38.53 ms MVA (PHT): 5.71 cm2 [place] [address] 2 D/M-MODE ECHOCARDIOGRAM Name: GEORGE IGLESIAS Room: [address] IN [facility].#: [id number] Admission: 08/13/18 Attend Phys: Annmarie Baer Discharge: Date of : 36 Date of Service: 08/13/18 1604 Report #: [id number] TDI Medial E' Sidney.: 0.04 m/s Lateral E' Sidney.: 0.13 m/s Pulmonary Valve PV Peak Sidney.: 0.77 m/s PV Peak Gr.: 2.37 mmHg Tricuspid Valve RAP Estimate: 5.00 mmHg TR Peak Gr.: 46.18 mmHg RVSP: 51.00 mmHg PA Pressure: 51.00 mmHg Left Ventricle Left ventricle is moderately dilated. akinesis noted of the inferior wall and apex There is normal left ventricular wall thickness. Left ventricular systolic function is severely decreased. LVEF is 20-25%. This study is not technically sufficient to allow evaluation of the LV diastolic function due to atrial fibrillation. Right Ventricle The right ventricle is normal size. The right ventricular systolic function is normal. Pacemaker lead is present in the right ventricle. Atria Left atrium is severely dilated. The right atrium size is normal. Aortic Valve Mild aortic valve sclerosis. No aortic regurgitation is present. There is no aortic valvular stenosis. Mitral Valve The mitral valve is normal in structure. Moderate mitral regurgitation. No evidence of mitral valve stenosis. Tricuspid Valve The tricuspid valve is normal in structure. Mild tricuspid regurgitation. estimated pa pressure 55 mm Hg Pulmonic Valve The pulmonary valve is normal in structure. Mild pulmonic regurgitation. Great Vessels The aortic root is normal in size. IVC is [place] [address] 2 D/M-MODE ECHOCARDIOGRAM Name: KELSIEGEORGE Room: [address] IN [facility]#: [id number] Admission: 08/13/18 Attend Phys: Annmarie Baer Discharge: Date of : 36 Date of Service: 08/13/18 1604 Report #: [id number] collapses >50% with inspiration. Pericardium There is no pericardial effusion. <Conclusion> LVEF is 20-25%. Left atrium is severely dilated. Mild aortic valve sclerosis. Moderate mitral regurgitation. Mild tricuspid regurgitation. estimated pa pressure 55 mm Hg <ELECTRONICALLY SIGNED> By: Christopher Johnson MD, [facility] 08/13/18 1604 1604 1604 Christopher Johnson MD, [facility] /INF
[2018-08-13 17:01] VITALS: BP 158/76
[2018-08-13 18:00] VITALS: BP 168/76
--- NOTE | 2018-08-13 19:07 | NUR ---
PT ARRIVED TO ROOM 225 FROM THE ER AT APPROX 1700, PT A/O X4, DENIES PAIN, OFF O2 ON ARRIVAL, O2 SAT 98% ON RA. PT C/O SOA FROM AMBULATING. TOOK ABOUT 5 MIN TO RECOVER. STATES HE DOES NOT WEAR O2 AT HOME. PTS VSS, PACED ON THE MONITOR. ADMISSION ASSESMENT AND HX DONE CHARTED. HOME MEDS REVIEWED. PT WANTS TYLENOL PM TONIGHT, RECIEVED ORDERS FOR PRN MEDS. PT UP AD YUE. USES CALL LIGHT APPROPRAITLY. WILL CONTINUE TO MONITOR.
[2018-08-13 20:00] VITALS: BP 174/89
--- NOTE | 2018-08-13 20:54 | H ---
[address] [address] HISTORY AND PHYSICAL Name: GEORGE IGLESIAS Room: [address] IN .R.#: [id number] Admission: 08/13/18 Attend Phys: Gurpreet Miller Discharge: Date of : 36 Report #: [id number] THIS REPORT FOR: //name// CC: Corby Baer DATE OF SERVICE: 08/13/2018 CHIEF COMPLAINT: Shortness of breath. HISTORY OF PRESENT ILLNESS: The patient is an 78-year-old gentleman who does have history of congestive heart failure, who presented to us here for shortness of breath. The patient tells me that he has been short of breath slowly for the last [address] Salgado office and was recommended to see the nurse practitioner today, so he went to the office and he was told that maybe he has Afib. He was not really sure of what it was, but they sent him over here for further management. He denies any weight gain. He denies any swelling. He has just been short of breath. He denies any chest pain or palpitations. PAST MEDICAL HISTORY: He remembers that he had maybe a one time episode of AFib, but not on anticoagulation. He has been on Effient for CAD. PAST SURGICAL HISTORY: Includes hemicolectomy for polyps, hernia repair, laser therapy for enlarged prostate, hypertension, diabetes, hyperlipidemia, ID in 1996. Bypass 1996, pacemaker in 2005, CAD with 9 stents placed. Previous peptic ulcer, arthritis, history of skin cancer, cardiomyopathy. He has history of pacemaker placement in 2011, right knee placement, kidney stones, left kidney removed. FAMILY HISTORY: Reviewed and not pertinent. SOCIAL HISTORY: The patient lives with the . He used to smoke, but quit 24 years ago. Denies alcohol or drug use. ALLERGIES: SULFA, ROCEPHIN. MEDICATIONS: Include Finasteride 5 mg daily, nitroglycerin 0.4 sublingual p.r.n. for chest pain, Carvedilol 12.5 b.i.d., Lipitor 80 mg at bedtime, multivitamins, Tylenol 650 every 4 hours, insulin 1 unit subcutaneous at a.c. Lisinopril 5 mg at bedtime, isosorbide mononitrate 30 mg daily, psyllium at bedtime, Tylenol PM p.r.n., prasugrel 10 mg daily, furosemide 20 mg daily, tamsulosin 0.4 mg daily, Levemir 23 units subcutaneously at bedtime, aspirin 81 mg daily. REVIEW OF SYSTEMS: The patient denies any fever or chills. Denies any coughing. He does have shortness of breath, [place] [address] HISTORY AND PHYSICAL Name: KELSIEGEORGE Room: [address] IN [facility]#: [id number] Admission: 08/13/18 Attend Phys: Gurpreet Miller Discharge: Date of : 38 Report #: [id number] any chest pain, no palpitations. No nausea, vomiting, abdominal pain, diarrhea, or constipation. A 12-point review of system unremarkable as I mentioned above. PHYSICAL EXAMINATION: VITAL SIGNS: Temperature is 36.9, heart rate of 70, respiratory rate 25, blood pressure is 153/67, 95% on 2 liters nasal cannula. GENERAL: The patient is alert. He is oriented x 3, not in acute respiratory distress. HEENT: Normocephalic, atraumatic. Nares patent. Clear pharynx. NECK: Supple. No lymphadenopathy. He does have a positive JVD. CARDIOVASCULAR: Normal rate, regular rhythm. No murmurs noted. RESPIRATORY: Clear to auscultation bilaterally, no wheeze or crackles. GASTROINTESTINAL: Abdomen is soft, nontender, nondistended, good bowel sounds. No organomegaly. GENITOURINARY: Deferred. LABORATORY DATA: EKG showed V paced rhythm. Imaging showed a CT chest, which showed no PE. Chest x-ray showed heart size upper limits of normal. IMPRESSION: The patient is an 86-year-old gentleman who presented to us here for: 1. Shortness of breath, might be secondary to acute on chronic congestive heart failure, pulses systolic. 2. Cardiomyopathy with status post ICD placement. 3. Known hypertension. 4. Known diabetes. 5. Known hyperlipidemia. 6. Known coronary artery disease status post stent placement, bypass. 7. History of peptic ulcer disease. 8. History of AAA stent. PLAN: The patient will be admitted. I expect this patient is going to be here more than 2 midnights. We will continue to diurese. He has been given Lasix in the Emergency Room. We will continue that. I will send him for the echo. He already had a cardiac catheterization done by Dr. Salgado on 06/23/2018 because He did have at that point, a PCI also, the proximal portion of the vein graft to the diagonal. We will continue the patient's Effient. We will have Cardiology see him. I am not sure if he is shortness of breath is angina equivalent. We will see what the echo shows. We will resume the patient's medications. Follow patient's creatinine while on diuretics. We will do serial troponin. We will put him on insulin sliding scale for his diabetes. Discussed with the patient regarding code status. He is not really sure if he wants to be resuscitated, but he agrees to be resuscitated for now , but not prolonged resuscitation. <ELECTRONICALLY SIGNED> By: Annmarie Baer MD 08/13/18 2054 1420 1606Annmarie Baer MD /nt
[2018-08-14] VITALS (7 sets, daily range): BP systolic 110–140; BP diastolic 52–73
--- NOTE | 2018-08-14 03:19 | NUR ---
PT ALERT ORIENTED. UP TO BR INDEPENDENTLY. TELEMETRY SHOWS V-PACED. DENIES PAIN. TYLENOL GIVEN FOR TEMP 99.3.
[2018-08-14 06:38] LABS: ANION GAP 10 mmol/L (7-16); BUN 32 mg/dL (7-18); CALCIUM 9.5 mg/dL (8.5-10.1); CHLORIDE 102 mmol/L (98-107); CO2 26 mmol/L (21-32); CREATININE 1.8 mg/dL (0.6-1.3); GLUCOSE 129 mg/dL (70-99); MAGNESIUM 1.8 mg/dL (1.8-2.4); POTASSIUM 3.7 mmol/L (3.5-5.1); SODIUM 138 mmol/L (136-145); TROPONIN-I LEVEL <0.06 ng/mL (<0.06)
--- NOTE | 2018-08-14 17:46 | NUR ---
ASSUMED PT CARE AT 0730, FULL ASSESMENT DONE CHARTED. PT A/O X4, UP AD YUE, VSS, VPACED/PVC'S ON THE MONITOR. PT ON FLUID RESTRICTION, INCREASED TO 2000ML/S PER DR PEREZ. PT EDUCATED ON AMOUNT. DISCUSSED PTS INSULIN DOSE WITH HIM, DOSE CHANGED PER HOME DOSE. PT USES CALL LIGHT APPROPRAILTY, HOPING TO GO HOME TOMORROW. WILL CONTINUE TO MONITOR.
[2018-08-15 04:00] VITALS: BP 135/56
--- NOTE | 2018-08-15 04:33 | NUR ---
PT ALERT ORIENTED. MILD [place] NOTED. UP AD YUE IN ROOM. TELEMETRY SHOWS V-PACED. ON RA. DENIES PAIN. POSSIBLE DC TO HOME TODAY.
[2018-08-15 05:01] LABS: CREATININE 2.3 mg/dL (0.6-1.3); POTASSIUM 3.7 mmol/L (3.5-5.1)
[2018-08-15 07:45] VITALS: BP 125/71
--- NOTE | 2018-08-15 09:48 | NUR ---
ASSUMED PT CARE AT 0730, FULL ASSESMENT DONE CHARTED.PT A/O X4, ANXIOUS ABOUT CHANGE IN LABS THIS AM. PT CONCERNED THAT HIS KIDNEY FUNCTION HAS GOTTEN WORSE AND DOES NOT WANT IV LASIX. PT HAD MINIMAL URINE OUTPUT LAST NIGHT. LUNGS CLEAR. VSS, VPACED/PVC'S ON THE MONITOR. PT HAD MEDS PER MAY. UP AD YUE. HOPING TO GO HOME TODAY. WILL CONTINUE WITH PLAN OF CARE.
[2018-08-15] MEDS ORDERED: ELIQUIS5 MG PO (10:02)
[2018-08-15 10:35] VITALS: BP 125/71
[2018-08-15 12:00] VITALS: BP 110/58
[2018-08-16 11:06] LABS: GLYCOHEMOGLOBIN (HGB A1C) 7.3 % (4.8-5.6)
[2018-08-16 12:18] LABS: BUN 25 mg/dL (7-18)
== END 2018-08-15 14:35 | disposition home or self-care (01) | DRG 291 ==
LOC: M.ERS 09:40 → M.TBA-ER 12:26 → M.2W 12:26
PROVIDERS: Family Medicine; Internal Medicine; Internal Medicine Cardiovascular Disease; ADMIT Internal Medicine
DX: I13.0 Hypertensive heart and chronic kidney disease with heart failure and stage 1 through stage 4 chronic kidney disease, or unspecified chronic kidney disease (principal); I50.23 Acute on chronic systolic (congestive) heart failure; J96.10 Chronic respiratory failure, unspecified whether with hypoxia or hypercapnia; E11.9 Type 2 diabetes mellitus without complications; E78.5 Hyperlipidemia, unspecified; M19.90 Unspecified osteoarthritis, unspecified site; I25.10 Atherosclerotic heart disease of native coronary artery without angina pectoris; I25.5 Ischemic cardiomyopathy; N18.9 Chronic kidney disease, unspecified; I27.20 Pulmonary hypertension, unspecified; I48.2 Chronic atrial fibrillation; Z96.651 Presence of right artificial knee joint; I25.2 Old myocardial infarction; Z95.1 Presence of aortocoronary bypass graft; Z95.5 Presence of coronary angioplasty implant and graft; Z87.11 Personal history of peptic ulcer disease; Z85.828 Personal history of other malignant neoplasm of skin; Z95.810 Presence of automatic (implantable) cardiac defibrillator; Z87.891 Personal history of nicotine dependence; Z87.442 Personal history of urinary calculi; Z90.5 Acquired absence of kidney; Z79.4 Long term (current) use of insulin; Z79.82 Long term (current) use of aspirin; Z79.899 Other long term (current) drug therapy; Z88.2 Allergy status to sulfonamides; Z88.8 Allergy status to other drugs, medicaments and biological substances

== ENCOUNTER 2019-12-02 11:04 | Inpatient (IN) | payer MEDICARE ==
[~2019-12-02] VITALS: Ht 182.9 cm; Wt 114.8 kg
[2019-12-02] VITALS (10 sets, daily range): BP systolic 112–192; BP diastolic 35–99
[~2019-12-02 11:04] MED LIST changes: +ELIQUIS5 MG PO
[2019-12-02] MEDS ORDERED: COREG6.25 MG PO (11:15)
[2019-12-02 11:43] LABS: ABSOLUTE BASOPHILS 0.1 thou/uL (0.0-0.2); ABSOLUTE EOSINOPHILS 0.1 thou/uL (0.0-0.7); ABSOLUTE LYMPHOCYTES 1.1 thou/uL (0.8-5.3); ABSOLUTE MONOCYTES 0.9 thou/uL (0.0-1.2); ABSOLUTE NEUTROPHILS 5.6 thou/uL (1.6-8.1); BASOPHILS 1.2 %; EOSINOPHILS 1.7 %; HEMOGLOBIN 13.7 gm/dL (14.0-18.0); LYMPHOCYTES 13.7 %; MCH 30.6 pg (26.0-34.0); MCHC 34.2 g/dL (28.0-37.0); MCV 89.4 fL (80.0-100.0); MONOCYTES 11.1 %; MPV 7.8 fl. (7.2-11.1); NUCLEATED RBCS 0 /100WBC; PLATELET COUNT* 74 thou/uL (150-400); POLYS 72.3 %; RBC 4.48 mil/uL (4.50-6.00); RDW-CV 14.7 % (10.5-14.5); WBC 7.8 thou/uL (4.0-11.0)
[2019-12-02 11:53] LABS: APTT 33.6 Seconds (25.0-31.3); INR 1.2
[2019-12-02 12:01] LABS: CREATININE 1.9 mg/dL (0.6-1.3); POTASSIUM 4.4 mmol/L (3.5-5.1)
[2019-12-02 12:11] LABS: TOTAL BILIRUBIN 0.8 mg/dL (<0.1-1.0); TOTAL PROTEIN 7.5 g/dL (6.4-8.2)
--- NOTE | 2019-12-02 15:05 | EKG ---
[place] [address] ELECTROCARDIOGRAM REPORT Name: GEORGE IGLESIAS Room: [place] [address] ADM IN [facility]#: [id number] Admission: 12/02/19 Attend Phys: George Tang, Discharge: Date of : 36 Date of Service: 12/02/19 1107 Report #: [id number] THIS REPORT FOR: //name// [facility] ED Test Date: 2019-12-02 Test Time: 11:07:44 Pat Name: GEORGE IGLESIAS Department: Room: [facility] Gender: M Dispatch Clerk: : 1940 Requested By: Seamus Chung Order Number: [id number] MD: Christopher Johnson Measurements Intervals [place] Rate: 58 P: KS: QRS: -77 QRSD: 207 T: 114 QT: 552 QTc: 543 Interpretive Statements atrial fibrillation with paced beats Compared to ECG 08/13/2018 09:48:52 pauses no longer noted Electronically Signed On 12-02-2019 15:05:28 CDT by Christopher Johnson [email or web address] <ELECTRONICALLY SIGNED> By: Christopher Johnson MD, [facility] 12/02/19 1505 1107 1107 Christopher Johnson MD, [facility] /EPI
[2019-12-02 23:16] LABS: URINE BILIRUBIN NEGATIVE (Negative); URINE BLOOD 1+ (Negative); URINE CLARITY CLEAR; URINE COLOR YELLOW; URINE GLUCOSE-RANDOM NEGATIVE (Negative); URINE KETONES NEGATIVE (Negative); URINE LEUKOCYTES-REFLEX TRACE (Negative); URINE NITRITE-REFLEX NEGATIVE (Negative); URINE PROTEIN NEGATIVE (Negative); URINE SPECIFIC GRAVITY 1.015 (1.005-1.030); URINE UROBILINOGEN 0.2 E.U./dl (0.2-1.0)
[2019-12-02 23:35] LABS: SQUAMOUS 0-3 Few /LPF (0-3)
[2019-12-02 23:36] LABS: CASTS None Seen /LPF (None Seen); URINE RBC 0-2 Rare /HPF (0-2); URINE WBC-REFLEX 6-15 Few /HPF (0-5)
[2019-12-02 23:37] LABS: BACTERIA-REFLEX 1-9 Few /HPF (None Seen); CRYSTALS None Seen /LPF (None Seen)
[2019-12-03] VITALS (13 sets, daily range): BP systolic 114–157; BP diastolic 49–71
[2019-12-03 05:23] LABS: HEMATOCRIT 39.1 % (42.0-52.0); HEMOGLOBIN 13.4 gm/dL (14.0-18.0); MCH 30.3 pg (26.0-34.0); MCHC 34.1 g/dL (28.0-37.0); MCV 88.7 fL (80.0-100.0); RBC 4.41 mil/uL (4.50-6.00); RDW-CV 14.6 % (10.5-14.5); WBC 8.5 thou/uL (4.0-11.0)
[2019-12-03 05:58] LABS: CREATININE 1.8 mg/dL (0.6-1.3); POTASSIUM 4.5 mmol/L (3.5-5.1)
[2019-12-03 06:08] LABS: CALCIUM 8.8 mg/dL (8.5-10.1); MAGNESIUM 1.9 mg/dL (1.8-2.4)
[2019-12-03] MEDS ORDERED: PROSCAR 5MG TABL5 M1 PO (09:15)
--- NOTE | 2019-12-06 17:19 | CARD ---
[address] [address] CARDIAC CATH REPORT Name: GEORGE IGLESIAS Room: [address] IN ..#: [id number] Admission: 12/02/19 Attend Phys: George Tang MD Discharge: 12/03/19 Date of : 38 Report #: [id number] THIS REPORT FOR: //name// cc: Kristine Jenkins MD, Kelly A. MD ~ APPROVED REPORT Study performed: 12/02/2019 16:21:11 Patient Status: ED Room #: Event Personnel: Bhargav Hernandez Bulb Planter, Lisa Curry Spinning Mule Operator, Jaswinder Morris RN Spinning Mule Operator, Kristi Beth RTR Scrub, Danette Ross RTR Monitor Exam: ICD Lead Replacement The patient is a 79 year-old male with a history of . Intraoperative Conscious Sedation Sedation start time: 17:24 Case end Time: 18:22 Fentanyl 50 mcg Versed 2 mg Implanted Devices: Plexa ProMRI DF-1 SD 65/18 pacing defibrillator lead. Procedure After explaining the risks, benefits, and alternative options, informed consent was obtained from the patient. The patient was brought to the cardiac catheterization lab and the left chest and shoulder were prepped and draped in the usual fashion. During this case, Fluoroscopy and omnipaque 20 ml were used for imaging. The left chest was infiltrated with lidocaine with epinephrine. The original pocket was opened using blunt disection.Pocket was reshaped for improved ICD placement. A venogram was performed. The left subclavian was accessed. Old LV lead was disconnected and capped off. New LV lead was inserted and tested for adequate pacing threshold, sensing and impedance. Lead was sutured in place using 0 silk. Pocket was irrigated with antibiotic solution. Pocket and subcutaneous was sutured using 2 vicryl. Skin was sutured using 4 vicryl. Benzoin spray, steri strips, telfa, and tegaderm were applied to site for sterile [place]. [place] [address] CARDIAC CATH REPORT Name: GEORGE IGLESIAS Room: [address] IN [facility].#: [id number] Admission: 12/02/19 Attend Phys: George Tang MD Discharge: 12/03/19 Date of : 38 Report #: [id number] The patient tolerated the procedure well and there were no complications associated with the procedure. Findings Specimens Removed: No Estimated Blood Loss: 5 ml Conclusion 1. Failure of the pacing ICD lead and a chronically implanted system. 2. Successful placement of a new pacing ICD lead. 3. Existing ICD lead was capped and retained. Recommendations 1. Follow-up site check in 1 week. 2. Follow-up device interrogation 1 to 2 months. <ELECTRONICALLY SIGNED> By: Bhargav Hernandez MD, FACC 12/06/191717 17 17Michaecody Hernandez MD, FACC /INF
== END 2019-12-03 11:15 | disposition home or self-care (01) | DRG 265 ==
LOC: M.ERS 11:04 → M.TBA-ER 13:11 → M.ICU 13:11
PROVIDERS: Family Medicine; ADMIT Internal Medicine; ATTEND Internal Medicine
PROC: B51N1ZZ Fluoroscopy of Left Upper Extremity Veins using Low Osmolar Contrast (ICD-10-PCS; principal; 2019-12-02)
PROC: 0JH60FZ Insertion of Subcutaneous Defibrillator Lead into Chest Subcutaneous Tissue and Fascia, Open Approach (ICD-10-PCS; principal; 2019-12-02)
PROC: 0JPT0FZ Removal of Subcutaneous Defibrillator Lead from Trunk Subcutaneous Tissue and Fascia, Open Approach (ICD-10-PCS; principal; 2019-12-02)
DX: T82.190A Other mechanical complication of cardiac electrode, initial encounter (principal); I13.0 Hypertensive heart and chronic kidney disease with heart failure and stage 1 through stage 4 chronic kidney disease, or unspecified chronic kidney disease; I50.22 Chronic systolic (congestive) heart failure; I48.20 Chronic atrial fibrillation, unspecified; I44.7 Left bundle-branch block, unspecified; I25.10 Atherosclerotic heart disease of native coronary artery without angina pectoris; E78.5 Hyperlipidemia, unspecified; E11.22 Type 2 diabetes mellitus with diabetic chronic kidney disease; D69.6 Thrombocytopenia, unspecified; Z96.651 Presence of right artificial knee joint; S00.83XA Contusion of other part of head, initial encounter; W18.39XA Other fall on same level, initial encounter; I27.20 Pulmonary hypertension, unspecified; N18.3 Chronic kidney disease, stage 3 (moderate); E11.51 Type 2 diabetes mellitus with diabetic peripheral angiopathy without gangrene; M47.892 Other spondylosis, cervical region; E66.9 Obesity, unspecified; I25.5 Ischemic cardiomyopathy; I45.9 Conduction disorder, unspecified; Z20.828 Contact with and (suspected) exposure to other viral communicable diseases; Y83.8 Other surgical procedures as the cause of abnormal reaction of the patient, or of later complication, without mention of misadventure at the time of the procedure; Z86.711 Personal history of pulmonary embolism; Z79.01 Long term (current) use of anticoagulants; Z88.1 Allergy status to other antibiotic agents; Z88.2 Allergy status to sulfonamides; Z90.49 Acquired absence of other specified parts of digestive tract; I25.2 Old myocardial infarction; Z95.1 Presence of aortocoronary bypass graft; Z95.5 Presence of coronary angioplasty implant and graft; Z79.899 Other long term (current) drug therapy; Z79.4 Long term (current) use of insulin; Z87.891 Personal history of nicotine dependence; Y93.89 Activity, other specified; Y92.89 Other specified places as the place of occurrence of the external cause; Y99.8 Other external cause status; Z68.34 Body mass index [BMI] 34.0-34.9, adult

== ENCOUNTER 2020-06-11 09:11 | Observation (INO) | payer MEDICARE ==
[2020-06-11] VITALS (8 sets, daily range): BP systolic 128–165; BP diastolic 70–103
[~2020-06-11] VITALS: Ht 180.3 cm; Wt 112.5 kg
[~2020-06-11 09:11] MED LIST changes: +COREG6.25 MG PO
[2020-06-11 10:08] LABS: HEMOGLOBIN 14.2 gm/dL (14.0-18.0); MCH 29.8 pg (26.0-34.0); MCV 90.2 fL (80.0-100.0); RBC 4.76 mil/uL (4.50-6.00); RDW-CV 14.5 % (10.5-14.5); WBC 7.9 thou/uL (4.0-11.0)
[2020-06-11 10:16] LABS: APTT 29.3 Seconds (25.0-31.3); INR 1.1; PROTIME 11.4 Seconds (9.20-11.50)
[2020-06-11 10:19] LABS: ALBUMIN 3.9 g/dL (3.4-5.0); ALKALINE PHOSPHATASE 74 U/L (46-116); ANION GAP 11 mmol/L (7-16); BUN 32 mg/dL (7-18); CALCIUM 9.8 mg/dL (8.5-10.1); CHLORIDE 105 mmol/L (98-107); CHOLESTEROL 114 mg/dL (<200); CO2 26 mmol/L (21-32); CREATININE 1.8 mg/dL (0.6-1.3); GLUCOSE 98 mg/dL (70-99); HDL CHOLESTEROL 34 mg/dL (>40); LDL CHOLESTEROL 60 mg/dL (<100); POTASSIUM 4.4 mmol/L (3.5-5.1); SGOT 21 U/L (15-37); SGPT 21 U/L (30-65); SODIUM 142 mmol/L (136-145); TC:HDL 3.4 Ratio (Not establshd); TOTAL BILIRUBIN 0.8 mg/dL (<0.1-1.0); TOTAL PROTEIN 7.7 g/dL (6.4-8.2); TRIGLYCERIDE 104 mg/dL (<150); VLDL 21 mg/dL (<40)
[2020-06-11 10:23] LABS: SERUM ASSESSMENT Clear
--- NOTE | 2020-06-11 17:37 | EKG ---
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
--- NOTE | 2020-06-11 17:38 | EKG ---
[place] [address] ELECTROCARDIOGRAM REPORT Name: GEORGE IGLESIAS Room: [address] M.R.#: [id number] Admission: 06/11/20 Attend Phys: Gurpreet Eckert Discharge: Date of : 36 Date of Service: 06/11/20 1443 Report #: [id number] THIS REPORT FOR: //name// 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: : 1940 Requested By: Corby Salgado Order Number: [id number] Ritika MD: Bhargav Hernandez Measurements Intervals [place] Rate: 60 P: 0 LA: 237 QRS: -78 QRSD: 209 T: 112 QT: 526 QTc: 526 Interpretive Statements Ventricular-paced rhythm No further analysis attempted due to paced rhythm Compared to ECG 06/11/2020 10:05:35 No significant changes Electronically Signed On 06-11-2020 17:38:44 CDT by Bhargav Hernandez [email or web address] <ELECTRONICALLY SIGNED> By: Bhargav Hernandez MD, FACC 06/11/20 1738 1443 1443 Bhargav Hernandez MD, [facility] /EPI
[2020-06-12] VITALS: BP 131/56
[2020-06-12 04:37] LABS: HEMATOCRIT 38.3 % (42.0-52.0); HEMOGLOBIN 12.6 gm/dL (14.0-18.0); MCH 29.3 pg (26.0-34.0); MCV 88.8 fL (80.0-100.0); MPV 7.9 fl. (7.2-11.1); RBC 4.31 mil/uL (4.50-6.00); RDW-CV 14.6 % (10.5-14.5); WBC 6.7 thou/uL (4.0-11.0)
[2020-06-12 04:42] LABS: ALBUMIN 3.3 g/dL (3.4-5.0); CREATININE 1.6 mg/dL (0.6-1.3); POTASSIUM 4.1 mmol/L (3.5-5.1); TOTAL BILIRUBIN 0.9 mg/dL (<0.1-1.0); TOTAL PROTEIN 6.2 g/dL (6.4-8.2); TROPONIN-I LEVEL 0.09 ng/mL (<0.06)
[2020-06-12 08:05] VITALS: BP 157/64
[2020-06-12] MEDS ORDERED: EFFIENT10 MG PO (09:49)
[2020-06-12 11:06] VITALS: BP 157/64
--- NOTE | 2020-06-12 11:32 | CARD ---
[address] [address] CARDIAC CATH REPORT Name: GEORGE IGLESIAS Room: [address] M.RGiuliana#: [id number] Admission: 06/11/20 Attend Phys: Corby Salgado MD, Discharge: Date of : 38 Report #: [id number] THIS REPORT FOR: cc: Kristine Jenkins MD, Kelly A. MD ~ Corby Salgado MD [facility] APPROVED REPORT Study performed: 06/11/2020 11:45:11 Patient Details Patient Status: Out-Patient Room #: The patient is a 80 year-old male Event Personnel Corby Salgado Body Liner, Roderick Smith RN Propulsion Engineer, George Rowell SALES COMMISSIONS ANALYST Scrub, Kristi Beth RTR Monitor, Alexandra San RN Propulsion Engineer Procedures Performed Art Access - R femoral artery, Left Heart Cath Coronaries, Bypass Grafts LHCCORCABG , MIRA Revasc AMI Total/Sub Single RCA AMIREVSING , MIRA w/Atherectomy Single DIAG DESATH , Hemostasis w/ Angioseal Indication Dyspnea, Positive stress test Risk Factors Obesity, Hypercholesterolemia, Hypertension, Diabetes Previous Procedures/Diagnoses Previous CABGPrevious PCI Admission/Lab Medications/Medications given during procedure Angiomax IV 16 ml, Angiomax Drip IV 39.37 ml per hr, Effient PO 60 mg, Aspirin PO 162 mg Procedure Narrative The patient was brought electively to the Cardiac Catheterization Laboratory and was prepped and draped in a sterile manner. The right femoral was infiltrated with 2% Lidocaine subcutaneous anesthesia. IV conscious sedation was used throughout procedure with appropriate monitoring and was performed in the presence [place] [address] CARDIAC CATH REPORT Name: GEORGE IGLESIAS Room: [address] Radha#: [id number] Admission: 06/11/20 Attend Phys: Corby Salgado MD, Discharge: Date of : 38 Report #: [id number] who was an independent trained observer other than the physician performing the procedure. A [place] 6 FR sheath was inserted into the right femoral artery. Coronary angiography was performed using coronary diagnostic catheters. The right coronary system was accessed and visualized with a 6F JR4 catheter. The left coronary system was accessed and visualized with a 6F JL4 catheter. The left ventricle was accessed and visualized with a 6F Pigtail catheter. Left ventricular/Aortic Valve gradient assessed via catheter pullback. Pre-demployment femoral angiogram was performed . Closure device was deployed with a 6 Fr Angioseal STS. There was no hematoma. The saphenous vein grafts were visualized with a 6F AR MOD catheter, 6F JR4 catheter, and 6F AR1 Guide catheter. The WALL graft was visualized with a 6F IM catheter. Intraoperative Conscious Sedation Sedation start time: 12:29 Case end Time: 13:39 Fentanyl 75 mcg Versed 3 mg Fluoro Time: 25.6 minutes Dose: DAP 045621 cGycm2 3058 mGy Contrast Type and Amount: Visipaque 225 ml [facility] Artery Percent Stenosis 1. Widely patent WALL graft to the mid LAD 2. Patent saphenous vein graft the distal right coronary artery with 90% distal graft narrowing 3. Patent saphenous vein graft to do diagonal branches of the LAD with 80% proximal graft narrowing Diagnostic Cath Left Main 50% distal narrowing LAD 100% proximal occlusion Circumflex 100% mid vessel occlusion Right Coronary 50% ostial narrowing with 90% stenosis just beyond the acute margin 100% distal occlusion Left Ventriculography Left Ventriculography was not performed. Hemodynamics The aortic pressure is 155/64 mmHg with a mean of 96 mmHg. The left ventricular pressure is 155/6 mmHg with [place] [address] CARDIAC CATH REPORT Name: GEORGE IGLESIAS Susi Room: [address]#: [id number] Admission: 06/11/20 Attend Phys: Corby Salgado MD, Discharge: Date of : 38 Report #: [id number] ventricular end diastolic pressure is 14 mmHg. There was no gradient across the aortic valve upon pullback. PCI Technique Lesion Anticoagulation was achieved with Angiomax. Patient was preloaded with Angiomax IV 16 ml. Percutaneous coronary intervention was performed on the saphenous vein graft to right coronary artery. The lesion stenosis prior to intervention was 90% with PAULINA 3 flow. A 6Fr AR 1 Guide Catheter was used to engage the ostium. A BMW 190cm Interventional Guidewire was used to cross the lesion. BALLOON DILATION A Balloon catheter Euphora SC 2.25x12 was inserted and inflated up to 10.00atm for 14seconds. Additional Inflation: 16.00atm for 10seconds. STENT DEPLOYMENT A drug-eluting stent Stambaugh RX Stent 2.26B57us was inserted and inflated up to 16.00atm for 10seconds. Additional Inflation: 17.00atm for 9seconds. Final angiography reveals 0 % stenosis with PAULINA 3 flow. PCI Technique Lesion 2 Percutaneous Coronary Intervention was performed on the saphenous vein graft to diagonal branch segment. Patient was preloaded with Angiomax IV 16 ml. The lesion stenosis prior to intervention was 80% with PAULINA 3 flow. A 6Fr AR 1 Guide Catheter was used to engage the ostium. A BMW 190cm Interventional Guidewire was used to cross the lesion. Balloon Dilation A Balloon catheter NC Trek RX 3.0 X 12 was inserted and inflated up to 17.00atm for 7seconds. Additional Inflation: 20.00atm for 9seconds. Additional Inflation: 24.00atm for 14seconds. An AngioSculpt 3.0 x 10 mm scoring balloon catheter was inserted and inflated up to 12 alethea for 14 seconds; 14 alethea for 16 seconds; 15 alethea for 9 seconds. Stent Deployment A drug-eluting stent Nirav RX Stent 3.0X12mm was inserted and inflated up to 16.00atm for 9seconds. Additional Inflation: 18.00atm for 8seconds. Final angiography reveals 15 % stenosis with PAULINA [address] [address] CARDIAC CATH REPORT Name: GEORGE IGLESIAS Room: M.229-P ADM Damari M.R.#: [id number] Admission: 06/11/20 Attend Phys: Corby Salgado MD, Discharge: Date of : 38 Report #: [id number] flow. Conclusion 1. Severe coronary artery disease characterized by the following: A 50% distal left main coronary B 100% proximal LAD occlusion C 100% mid circumflex occlusion D dominant right coronary artery with 50% ostial narrowing with 90% stenosis just beyond the acute margin 100% distal occlusion 2. Graft study characterized by the following: A widely patent WALL graft to the LAD B patent saphenous vein graft to the distal right coronary artery with 90% distal graft narrowing C patent saphenous vein graft to diagonal branch of the LAD with 80% proximal graft narrowing 3. Mild elevation of systemic systolic pressure 4. Successful PCI with deployment of drug-eluting stent in the distal portion of the graft to the right coronary artery with 0% residual narrowing and PAULINA-3 flow the distal vessel 5 successful angioplasty atherotomy/atherectomy and stenting of the proximal portion of the graft to 2 diagonals with 15 % residual narrowing and PAULINA-3 flow to the distal vessel Recommendations Cardiac Risk Reduction Program Aggressive Medical Therapy Medications Administered Aspirin (any) [place] [address] CARDIAC CATH REPORT Name: GEORGE IGLESIAS Room: [facility] ADM Damari M.R.#: [id number] Admission: 06/11/20 Attend Phys: Corby Salgado MD, Discharge: Date of : 38 Report #: [id number] Diagnostic Cath Approved by: Corby Salgado MD Date/Time: 06/12/2020 11:29:08 <ELECTRONICALLY SIGNED> By: Corby Salgado MD, FACC 06/12/20 1132 31 113Corby Salgado MD, FACC /INF
[2020-06-12 11:45] VITALS: BP 152/103
--- NOTE | 2020-06-12 13:03 | EKG ---
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 : 1940 Requested By: Corby Salgado Order Number: [id number] Ritika MD: Corby Salgado Measurements Intervals [place] Rate: 60 P: 0 PA: 200 QRS: -83 QRSD: 206 T: 107 QT: 520 QTc: 520 Interpretive Statements Ventricular-paced rhythm No further analysis attempted due to paced rhythm Compared to ECG 06/11/2020 14:43:57 No significant changes Electronically Signed On 06-12-2020 13:02:58 CDT by Corby Salgado [email or web address] <ELECTRONICALLY SIGNED> By: Corby Salgado MD, [facility] 06/12/20 1302 0 0 Corby Salgado MD, [facility] /EPI
--- NOTE | 2020-06-13 14:42 | H ---
[place] [address] HISTORY AND PHYSICAL Name: GEORGE IGLESIAS Room: [address] Damari Garcia#: [id number] Admission: 06/11/20 Attend Phys: Corby Salgado MD, Discharge: 06/12/20 Date of : 36 Report #: [id number] THIS REPORT FOR: cc: Kristine Jenkins MD, Kelly A. MD ~ Corby Salgado MD [facility] DATE OF SERVICE: 06/11/2020 HISTORY OF PRESENT ILLNESS: The patient is a very pleasant 80-year-old male with coronary artery disease, status post remote coronary artery bypass grafting and more recent percutaneous coronary intervention to the vein graft to the diagonal. Of late, he has noted increased dyspnea on exertion and some chest discomfort. In that setting, nuclear stress test was performed, which revealed significant inducible ischemia in the mid anterior region and the base of the distal inferior region with significant impairment in global LV function, satting being high risk. The patient also has a pacemaker defibrillator in place with no recent firing of the defibrillator. He has a history of diabetes, hypertension, hyperlipidemia, and paroxysmal atrial fibrillation. MEDICATIONS: Included Eliquis 5 mg b.i.d., atorvastatin 80 mg daily, carvedilol 12.5 mg b.i.d., diphenhydramine is not needed, Proscar 5 mg daily, furosemide 20 mg 2 tablets in the morning, varying doses of insulin, lisinopril 5 mg daily and a multivitamin. SOCIAL HISTORY: The patient is a former smoker. He is . PAST MEDICAL HISTORY: Remarkable for the aforementioned risk factors including diabetes, hypertension, mild renal insufficiency. REVIEW OF SYSTEMS: Negative for the 12-point review of system with the exception of: PULMONARY: With some dyspnea on exertion. CARDIAC: Chest discomfort associated with activity. PHYSICAL EXAMINATION: GENERAL: Demonstrates a moderately overweight, alert and appropriate, elderly male. VITAL SIGNS: Blood pressure is 140/70, pulse rate is 65, respirations are 18 per minute. NECK: Jugular venous pressure is normal. CHEST: [place] [address] HISTORY AND PHYSICAL Name: GEORGE IGLESIAS Room: [address]#: [id number] Admission: 06/11/20 Attend Phys: Corby Salgado MD, Discharge: 06/12/20 Date of : 38 Report #: [id number] CARDIAC: Reveals normal first and second heart sounds with a soft systolic murmur without rubs or gallops. ABDOMEN: Modestly obese. EXTREMITIES: Without edema with intact femoral, pedal and radial pulses. DIAGNOSTIC DATA: Nuclear stress test was reviewed and reveals areas of mid anterior and basal to distal inferior inducible ischemia. IMPRESSION: 1. Abnormal nuclear stress test with multi-territory inducible ischemia. 2. Significant impairment in global LV function. 3. Ischemic cardiomyopathy. 4. Coronary artery disease. 5. Status post remote coronary artery bypass grafting and more recent PCI. 6. Diabetes. 7. Hypertension. 8. Hypercholesterolemia. 9. Exogenous obesity. RECOMMENDATIONS: Given the aforementioned clinical scenario with recrudescence of symptoms compatible with recurrent angina and a multi-territory inducible ischemia and a high risk nuclear stress test, I would recommend cardiac catheterization with definition of coronary and graft anatomy and outlining the prospects for subsequent therapeutic modification. <ELECTRONICALLY SIGNED> By: Corby Salgado MD, FACC 06/13/20 1442 1309 1327Corby Salgado MD, FACC /nt
--- NOTE | 2020-06-13 14:44 | D ---
[address] [address] DISCHARGE SUMMARY Name: GEORGE IGLESIAS Room: [address] Damari Garcia#: [id number] Admission: 06/11/20 Attend Phys: Corby Salgado MD, Discharge: 06/12/20 Date of : 36 Report #: [id number] THIS REPORT FOR: cc: Kristine Jenkins MD, Kelly A. MD ~ Corby Salgado MD [facility] DATE OF SERVICE: 06/12/2020 FINAL DISCHARGE DIAGNOSES: 1. Abnormal nuclear stress test. 2. Coronary artery disease. 3. Status post remote coronary artery bypass grafting. 4. Status post PTCA with stenting on 06/11/2020. 5. Cardiomyopathy. 6. Paroxysmal atrial fibrillation. 7. Diabetes mellitus. 8. Sick sinus syndrome. 9. Hypercholesterolemia. The patient is a very pleasant and active 80-year-old male who has recently noted increased dyspnea on exertion. There is a history of complex coronary artery disease, status post remote coronary artery bypass grafting and subsequent percutaneous coronary intervention. Most recently, he underwent stenting of a graft to 2 diagonal branches. He has undergone prior stenting of the vein graft to the right coronary artery. Recent nuclear stress test demonstrated multi-territory ischemia with inferior and mid anterior ischemia noted. The patient has underlying diabetes and hyperlipidemia. He has a pacemaker in the context of sick sinus syndrome with satisfactory function of same. Medicines have included antiplatelet and antihypertensive therapy. In the context of his abnormal nuclear stress test and recent dyspnea on exertion, I performed a cardiac catheterization on 06/11/2020, which revealed total occlusion of the [place] coronary arteries with a widely patent WALL graft to the LAD. There was a patent vein graft to the distal right coronary artery with 90% distal graft stenosis and a patent vein graft to 2 diagonal branches of the LAD with 80% proximal graft stenosis. I performed percutaneous coronary intervention with stenting of the distal portion of the graft to the right coronary artery with arthrotomy/[place] [address] DISCHARGE SUMMARY Name: GEORGE IGLESIAS Room: [address] [place].#: [id number] Admission: 06/11/20 Attend Phys: Corby Salgado MD, Discharge: 06/12/20 Date of : 36 Report #: [id number] and stenting of the proximal portion of the graft to 2 diagonals with 0 and 10% residual narrowings following a final stenting and PAULINA 3 flow of the distal circulation. The patient did well post-procedurally with an inconsequential increase in troponin to 0.09. He had no chest pain. He ambulated in the hallways without difficulty and there was good hemostasis at the right femoral site of catheterization. He was discharged home on dual antiplatelet therapy, constituted of aspirin and Effient, with the aspirin to be discontinued when he resumes his Eliquis at 5 mg b.i.d. given in the context of structural heart disease and paroxysmal atrial fibrillation. Additional medicines include carvedilol 6.25 mg b.i.d., lisinopril, insulin, in the short and long-acting forms. The patient is scheduled to see me in late June. In the interim, I urged resumption of normal activities with avoidance of lifting and strenuous activities in the next 48-72 hours. Therefore, the patient is discharged to home in stable condition on the above described medications, with followup as iterated above. <ELECTRONICALLY SIGNED> By: Corby Salgado MD, FACC 06/13/20 [id number] [id number] [id number] Salgdao MD, FACC /nt
== END 2020-06-12 11:30 | disposition home or self-care (01) ==
LOC: M.CL 09:11 → M.TBA-CV 13:50 → M.2W 16:51
PROVIDERS: ADMIT Internal Medicine; ATTEND Internal Medicine
DX: I25.10 Atherosclerotic heart disease of native coronary artery without angina pectoris (principal); I48.0 Paroxysmal atrial fibrillation; I10 Essential (primary) hypertension; E11.9 Type 2 diabetes mellitus without complications; I49.5 Sick sinus syndrome; I42.9 Cardiomyopathy, unspecified; E78.00 Pure hypercholesterolemia, unspecified; E66.9 Obesity, unspecified; Z68.45 Body mass index [BMI] 70 or greater, adult; Z79.899 Other long term (current) drug therapy; Z79.82 Long term (current) use of aspirin; Z20.822 Contact with and (suspected) exposure to COVID-19